=== PATIENT | female | born 1965 | race Caucasian/White ===

== ENCOUNTER → 2018-02-15 14:37 | Outpatient (CLI) | payer BC, SELFPAY ==
--- NOTE | 2018-02-15 14:45 | XR_ITS ---
XR ankle RT min 3V HISTORY: Pain ITS.REASON: RT FOOT PAIN ORDERING PHYSICIAN: Emiliano La MD PATIENT AGE: 52 years Comparison: None FINDINGS: Well-circumscribed calcific density is present in the medial aspect of the medial malleolus consistent with an old fracture or accessory center of ossification. Similar density is noted the posterior distal tibia. IMPRESSION, 1. No acute fracture. 2. Old fracture versus accessory center of ossification of the posterior distal and medial tibia
--- NOTE | 2018-02-15 14:45 | XR_ITS ---
XR foot RT min 3V HISTORY: ITS.REASON: RT FOOT PAIN ORDERING PHYSICIAN: Emiliano La MD PATIENT AGE: 52 years COMPARISON: None FINDINGS: There are prominent bony hypertrophic changes along the proximal aspect of the fifth metatarsal and at the dorsal aspect of the navicular. Small calcaneal spur present and there is an os cuboid area. The joint spaces are well-preserved. IMPRESSION: Bony hypertrophic changes as described above, no acute finding
== END ==
PROVIDERS: PCP Family Medicine; Visit Provider Family Medicine
DX: M79.671 Pain in right foot (principal)
CPT/HCPCS: 73610; 73630

== ENCOUNTER → 2019-11-20 09:07 | Outpatient (POV) | payer BC, SELFPAY | PROVIDERS: Visit Provider Dermatology | DX: Z00.00 Encounter for general adult medical examination without abnormal findings (principal) ==

== ENCOUNTER → 2020-01-26 10:42 | Outpatient (CLI) | payer BC, SELFPAY ==
--- NOTE | 2020-01-26 | MR_ITS ---
PROCEDURE: MR CERVICAL SPINE WO CON CLINICAL INDICATION: Neck tightness, left-sided shoulder pain, pinched nerve COMPARISON: No exams were available for comparison TECHNIQUE: Standard multiplanar multiecho sequences are performed without contrast. 3-D MIP and myelographic images are also rendered and reviewed FINDINGS: Study is technically limited due to patient's body habitus. There is mild hypertrophy of the odontoid posteriorly versus prominent transverse ligament with resultant narrowing of the canal at this level. The canal measures 9 mm. This abuts the cord anteriorly but without cord displacement or flattening. C2-C3: Unremarkable. C3-C4: Unremarkable. C4-C5: Minimal left paracentral disc protrusion with canal stenosis at 8 mm with minimal flattening of the cord on the left at this region. There is some hypertrophy of the posterior longitudinal ligament at the C5 level superiorly C5-C6: There is a small to medium sized right paracentral disc herniation. With severe right lateral recess narrowing and with compression upon the anterior right aspect of the cord. There is severe canal stenosis at this level at 6 mm. There is also left a small paracentral and foraminal disc protrusion of the disc at this level with severe left lateral recess narrowing and foraminal narrowing. There is cord compression greater on the right compared to the left. C6-C7: Degenerative disc disease. There is a bilobular disc protrusion in the right paracentral and left paracentral region causing severe canal stenosis of 6 mm with moderate to severe bilateral lateral recess narrowing and with cord compression by the disc. C7-T1: Mild degenerative disc disease with bulging disc eccentric toward the left. IMPRESSION: 1. There is mild hypertrophy of the odontoid posteriorly versus prominent transverse ligament with resultant narrowing of the canal at this level. The canal measures 9 mm. This abuts the cord anteriorly but without cord displacement or flattening 2. C4-C5: Minimal left paracentral disc protrusion with canal stenosis at 8 mm with minimal flattening of the cord on the left at this region. There is some hypertrophy of the posterior longitudinal ligament at the C5 level superiorly 3. C5-C6: There is a small to medium sized right paracentral disc herniation. With severe right lateral recess narrowing and with compression upon the anterior right aspect of the cord. There is severe canal stenosis at this level at 6 mm. There is also left a small paracentral and foraminal disc protrusion of the disc at this level with severe left lateral recess narrowing and foraminal narrowing. There is cord compression greater on the right compared to the left. 4. C6-C7: Degenerative disc disease. There is a bilobular disc protrusion in the right paracentral and left paracentral region causing severe canal stenosis of 6 mm with moderate to severe bilateral lateral recess narrowing and with cord compression by the disc. 5. C7-T1: Mild degenerative disc disease with bulging disc eccentric toward the left. Dictated by: Chong Brunson MD 01/28/2020 06:27 Chong Brunson MD in OV 01/28/2020 06:27
== END ==
PROVIDERS: PCP Family Medicine; Visit Provider Nurse Practitioner
DX: M54.12 Radiculopathy, cervical region (principal)
CPT/HCPCS: 72141; 76376

== ENCOUNTER 2020-02-13 08:43 | Outpatient (RCR) | payer BC, SELFPAY ==
--- NOTE | 2020-02-13 10:37 | HMH.PTOPEV ---
PT Outpatient Evaluation Rehab PT Outpatient Evaluation Start: 02/13/20 10:18 Freq: Status: Active Protocol: Document 02/13/20 10:21 ROSELIA (Rec: 02/13/20 10:37 PHORNE [id number]) Electronically Signed By Pastor Betts, PT 02/13/20 10:21 Outpatient Therapy Subjective History Subjective History Pt is 54 yowf who presents with c/o pain in R side of neck and R shld x ~ 6 mos which she reports results from a fall. She reports 2 falls in past 6 mos, one at a restaurant The chair wasn't put together right and it just fell apart under me and I fell back and the other at home on her front steps. She reports pain is constant ache, but intermittent shooting pains also occur. She reports intermittent headache and newer onset R hand weakness. She reports PMH of HTN and RA. She had MRI performed which show DDD with disc bulges at C4-5, C5-6, and C6-7. Pt has difficulty with cervical ROM at baseline due to soft tissue approximation. Chief Complaint Pain,Stiff,Decreased Printed Circuit Boards Beveler Strength Symptom Type Ache,Sharp Symptoms Aggravated By Physical Activity Prior Functional Limitations None Current Functional Limitations Lifting,Sleeping,Recreation Activity Symptom Description Constant but Variable Level of pain today (0-10) 5 Pain scale - at its worst (0-10) 10 Cervical Eval Palpation Cervical Muscles R Cervical Paraspinal,R Suboccipital,L Suboccipital,R Upper Trapezius Cervical/Thoracic Palpation Findings Tenderness Flexibility Deficits Upper Trapezius Muscle Length (L) Mild Tightness,(R) Moderate Tightness Levaetor Scapulae Muscle Length (L) Mild Tightness,(R) Moderate Tightness Passive Joint Mobility Cervical PIVM Dec: R C2/3 L C2/3 R C3/4 L C3/4 R C4/5 L C4/5 R C5/6
== END 2020-02-13 08:45 | disposition home or self-care (01) ==
LOC: PT 08:43
PROVIDERS: PCP Family Medicine; Visit Provider Nurse Practitioner
DX: M50.30 Other cervical disc degeneration, unspecified cervical region (principal); M79.2 Neuralgia and neuritis, unspecified
CPT/HCPCS: 97163

== ENCOUNTER → 2020-03-14 12:59 | Outpatient (CLI) | payer BC, SELFPAY | PROVIDERS: PCP Family Medicine; Visit Provider Neurological Surgery | DX: Z01.812 Encounter for preprocedural laboratory examination (principal); Z20.822 Contact with and (suspected) exposure to COVID-19 | CPT/HCPCS: U0003 ==

== ENCOUNTER → 2020-09-19 13:00 | Outpatient (CLI) | payer BC, SELFPAY | PROVIDERS: PCP Family Medicine; Visit Provider Family Medicine | DX: Z20.822 Contact with and (suspected) exposure to COVID-19 (principal) | CPT/HCPCS: U0003 ==

== ENCOUNTER → 2020-09-29 12:38 | Outpatient (CLI) | payer BC, SELFPAY | PROVIDERS: PCP Nurse Practitioner; Visit Provider Nurse Practitioner | DX: Z20.822 Contact with and (suspected) exposure to COVID-19 (principal) | CPT/HCPCS: U0003 ==

== ENCOUNTER 2021-11-23 07:53 | Outpatient (RCR) | payer BC, SELFPAY ==
--- NOTE | 2021-11-23 08:53 | HMH.PTOPEV ---
PT Outpatient Evaluation Rehab PT Outpatient Evaluation Start: 11/23/21 08:01 Freq: Status: Active Protocol: Document 11/23/21 08:01 KRISTIASHLEY (Rec: 11/23/21 08:52 RANI [id number]) E-signed By Lisa Cervantes, PT Outpatient Therapy Subjective History Subjective History Pt is a 56 y/o female that reports onset of bilateral low back pain a week and a half ago. Pt reports on Oct 11 she unloaded her car from an event with onset of upper back pain. Pt states pain improved until a week and a half ago when she moved heavy stuff around that caused gradual onset of bilateral low back pain. Pt reports constant pressure pain that travels from side/side and to the center that is worse with sitting. Pt reports she was given prednisone, cyclobenzaprine, and diclofenac sodium which hasn't helped much. Pt reports she has also been using a TENS unit with heat twice a day which relieves some pain. Pt reports she has a xray scheduled for after her PT appointment today. Pt reports she went back to work which involved mostly sitting that aggravated pain and improved some with walking . Pt denies paresthesia or recent falls. Pt reports she is able to sleep well when she takes her medicine but prior to medicine she would wake up around 4 am due to pain. Pt denies red flags (n/v, fever, night sweats, etc.) and hip, knee or ankle pain. 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
== END 2021-11-23 07:55 | disposition home or self-care (01) ==
LOC: PT 07:53
PROVIDERS: PCP Nurse Practitioner; Visit Provider Nurse Practitioner
DX: M54.50 Low back pain, unspecified (principal)
CPT/HCPCS: 97163

== ENCOUNTER → 2021-11-23 08:51 | Outpatient (CLI) | payer BC, SELFPAY ==
--- NOTE | 2021-11-23 09:03 | XR_ITS ---
FINAL REPORT CLINICAL HISTORY: acute bilateral low back pain FINDINGS: LUMBAR SPINE Three views were obtained. There is no acute fracture. There is no malalignment. There are mild and moderate degenerative changes with facet arthropathy in the lower lumbar spine. There is no soft tissue abnormality. IMPRESSION: Degenerative change with no acute bony abnormality. Reviewed, Interpreted and Dictated by Mahad Bragg III, MD Transcribed by Tatum Patel Authenticated and [facility]
== END ==
PROVIDERS: PCP Family Medicine; Visit Provider Nurse Practitioner
DX: M54.50 Low back pain, unspecified (principal)
CPT/HCPCS: 72100

== ENCOUNTER → 2022-02-15 09:21 | Outpatient (CLI) | payer BC, SELFPAY ==
[2022-02-15 18:31] LABS: Influenza A, PCR Not Detected (NotDetected); Influenza B, PCR Not Detected (NotDetected)
[2022-02-15 22:21] LABS: Coronavirus 19, PCR Detected (NotDetected)
== END ==
PROVIDERS: PCP Nurse Practitioner; Visit Provider Nurse Practitioner
DX: U07.1 COVID-19 (principal)
CPT/HCPCS: C9803; U0003; U0005

== ENCOUNTER → 2022-08-19 19:34 | Outpatient (CLI) | payer BC, SELFPAY ==
[2022-08-19 20:34] LABS: Basophils % 0.5 % (0.1-2.0); Eosinophils # 0.2 K/mm3 (0.0-0.4); Eosinophils % 2.9 % (0.1-12.0); Hematocrit 44.2 % (37.0-47.0); Hemoglobin 14.1 g/dL (12.2-16.2); Lymphocytes # 2.7 K/mm3 (0.7-4.5); Lymphocytes % 33.8 % (10-50); Mean Corpuscular HGB Conc 31.9 g/dL (31.8-35.4); Mean Corpuscular Hemoglobin 29.7 pg (27.0-31.2); Mean Corpuscular Volume 93.1 fl (81-99); Mean Platelet Volume 8.9 fl (7.4-10.4); Monocytes # 0.7 K/mm3 (0.1-1.0); Monocytes % 8.5 % (1.7-9.3); Neutrophils # 4.4 K/mm3 (1.8-7.8); Neutrophils % 54.2 % (37.0-80.0); Platelet Count 276 K/mm3 (142-424); Red Blood Count 4.74 M/mm3 (4.20-5.40); Red Cell Distribution Width 13.4 % (11.5-17.5)
[2022-08-19 20:42] LABS: Alanine Aminotransferase 66 U/L (12-78); Albumin Level 4.4 g/dl (3.5-5.0); Albumin/Globulin Ratio 1.4 (1.1-1.8); Alkaline Phosphatase 136 U/L (38-126); Anion Gap 13.3 mEq/L (5-15); Aspartate Amino Transferase 65 U/L (14-36); Bilirubin,Total 0.5 mg/dl (0.2-1.3); Blood Urea Nitrogen 10 mg/dl (7-17); Calcium 9.1 mg/dl (8.4-10.2); Carbon Dioxide 26 mmol/L (22.0-30.0); Chloride 105 mmol/L (98-107); Chol/HDL Ratio 2.8 (1-3.5); Cholesterol 207 mg/dl (140-200); Estimated Glomerular Filt Rate 128 ml/min (>60); GFR (African American) 155 ML/MIN (>60); Globulin 3.2 g/dL (1.3-3.2); Glucose 104 mg/dl (74-100); HDL Cholesterol 73 mg/dl (40-60); Potassium 4.3 mmoL/L (3.5-5.1); Sodium 140 mmol/L (136-145); Total Protein,Serum 7.6 g/dl (6.3-8.2); Triglycerides 144 mg/dl (30-150); VLDL Cholesterol 29 mg/dL (0-40)
[2022-08-19 20:46] LABS: Creatinine,Urine Random 159 mg/dL (Not Estab.); Hemoglobin A1C 6.1 % (4.0-6.0)
[2022-08-19 20:50] LABS: Microalbumin/Creatinine Ratio 4.4
[2022-08-19 20:53] LABS: Direct LDL Cholesterol 103.65 mg/dL (100-129)
[2022-08-19 21:13] LABS: Thyroid Stimulating Hormone 1.15 uIU/mL (0.465-4.68)
[2022-08-21 10:12] LABS: Lyme Ab CIA Negative (Negative)
== END ==
PROVIDERS: Nurse Practitioner; PCP Family Medicine; Visit Provider Family Medicine
DX: I10 Essential (primary) hypertension (principal); E78.5 Hyperlipidemia, unspecified; R73.01 Impaired fasting glucose; L08.9 Local infection of the skin and subcutaneous tissue, unspecified; S70.362A Insect bite (nonvenomous), left thigh, initial encounter; W57.XXXA Bitten or stung by nonvenomous insect and other nonvenomous arthropods, initial encounter
CPT/HCPCS: 80053; 80061; 82043; 82570; 83036; 84443; 85025; 86618

== ENCOUNTER → 2022-12-14 08:41 | Outpatient (CLI) | payer BC, SELFPAY ==
[2022-12-14 17:42] LABS: Coronavirus 19, PCR Not Detected (NotDetected); Influenza A, PCR Not Detected (NotDetected); Influenza B, PCR Not Detected (NotDetected)
== END ==
PROVIDERS: PCP Nurse Practitioner; Visit Provider Nurse Practitioner
DX: J06.9 Acute upper respiratory infection, unspecified (principal); R05.8 Other specified cough; R09.81 Nasal congestion; J02.9 Acute pharyngitis, unspecified
CPT/HCPCS: 87636

== ENCOUNTER 2023-03-22 22:04 | Outpatient (CLI) | payer BC, SELFPAY ==
[2023-03-22 18:21] LABS: Adenovirus,PCR Not Detected (NotDetected); Coronavirus 19, PCR Not Detected (NotDetected); Coronavirus 229E Not Detected (NotDetected); Coronavirus NL63 Not Detected (NotDetected); Coronavirus OC43 Not Detected (NotDetected); Coronovirus HKU1,PCR Not Detected (NotDetected); Human Metapneumovirus Not Detected (NotDetected); Influenza A, PCR Not Detected (NotDetected); Influenza AH1, 2009 Not Detected (NotDetected); Influenza AH1, PCR Not Detected (NotDetected); Influenza AH3,PCR Not Detected (NotDetected); Influenza B, PCR Not Detected (NotDetected); Parainfluenza 1, PCR Not Detected (NotDetected); Parainfluenza 2, PCR Not Detected (NotDetected); Parainfluenza 4, PCR Not Detected (NotDetected); Respiratory Syncytial Virus Not Detected (NotDetected); Rhinovirus/Enterovirus Not Detected (NotDetected)
[2023-03-22 21:46] LABS: Parainfluenza 3, PCR Detected (NotDetected)
== END 2023-03-22 23:59 ==
LOC: LAB.DROPOF 22:05
PROVIDERS: PCP Nurse Practitioner; Visit Provider Nurse Practitioner
DX: J06.9 Acute upper respiratory infection, unspecified (principal); R09.89 Other specified symptoms and signs involving the circulatory and respiratory systems; B34.8 Other viral infections of unspecified site
CPT/HCPCS: 87632; 87635

== ENCOUNTER 2023-05-10 19:10 | Outpatient (CLI) | payer BC, SELFPAY ==
[2023-05-10 18:32] LABS: Adenovirus,PCR Not Detected (NotDetected); Coronavirus 19, PCR Not Detected (NotDetected); Coronavirus 229E Not Detected (NotDetected); Coronavirus NL63 Not Detected (NotDetected); Coronavirus OC43 Not Detected (NotDetected); Coronovirus HKU1,PCR Not Detected (NotDetected); Human Metapneumovirus Not Detected (NotDetected); Influenza A, PCR Not Detected (NotDetected); Influenza AH1, 2009 Not Detected (NotDetected); Influenza AH1, PCR Not Detected (NotDetected); Influenza AH3,PCR Not Detected (NotDetected); Influenza B, PCR Not Detected (NotDetected); Parainfluenza 1, PCR Not Detected (NotDetected); Parainfluenza 2, PCR Not Detected (NotDetected); Parainfluenza 3, PCR Not Detected (NotDetected); Parainfluenza 4, PCR Not Detected (NotDetected); Respiratory Syncytial Virus Not Detected (NotDetected); Rhinovirus/Enterovirus Not Detected (NotDetected)
== END 2023-05-10 23:59 ==
LOC: LAB.DROPOF 19:11
PROVIDERS: PCP Nurse Practitioner; Visit Provider Nurse Practitioner
DX: J06.9 Acute upper respiratory infection, unspecified (principal); R09.81 Nasal congestion; R05.9 Cough, unspecified
CPT/HCPCS: 87632; 87635

== ENCOUNTER 2023-06-21 09:03 | Outpatient (POV) | payer BC, SELFPAY | END 2023-06-21 23:59 | disposition home or self-care (01) | LOC: SC 09:03 | PROVIDERS: PCP Nurse Practitioner; Visit Provider Dermatology | DX: Z00.00 Encounter for general adult medical examination without abnormal findings (principal) ==

== ENCOUNTER 2023-08-01 18:00 | Outpatient (CLI) | payer BC, SELFPAY ==
[2023-08-01 18:55] LABS: Adenovirus,PCR Not Detected (NotDetected); Bordetella Pertussis Not Detected (NotDetected); Chlamydophila Pneumoniae, PCR Not Detected (NotDetected); Coronavirus 19, PCR Not Detected (NotDetected); Coronavirus 229E Not Detected (NotDetected); Coronavirus NL63 Not Detected (NotDetected); Coronavirus OC43 Not Detected (NotDetected); Coronovirus HKU1,PCR Not Detected (NotDetected); Human Metapneumovirus Not Detected (NotDetected); Influenza A, PCR Not Detected (NotDetected); Influenza AH1, 2009 Not Detected (NotDetected); Influenza AH1, PCR Not Detected (NotDetected); Influenza AH3,PCR Not Detected (NotDetected); Influenza B, PCR Not Detected (NotDetected); Mycoplasma Pneumoniae, PCR Not Detected (NotDetected); Parainfluenza 1, PCR Not Detected (NotDetected); Parainfluenza 2, PCR Not Detected (NotDetected); Parainfluenza 3, PCR Not Detected (NotDetected); Parainfluenza 4, PCR Not Detected (NotDetected); Respiratory Syncytial Virus Not Detected (NotDetected); Rhinovirus/Enterovirus Not Detected (NotDetected)
== END 2023-08-01 23:59 | disposition home or self-care (01) ==
LOC: LAB.DROPOF 08-02 08:54
PROVIDERS: PCP Nurse Practitioner; Visit Provider Nurse Practitioner
DX: J06.9 Acute upper respiratory infection, unspecified (principal)
CPT/HCPCS: 87581; 87632; 87635; 87798

== ENCOUNTER 2023-08-17 07:54 | Outpatient (CLI) | payer BC, SELFPAY ==
--- NOTE | 2023-08-17 07:55 | CT_ITS ---
FINAL REPORT TECHNIQUE: Thin section axial CT images of the facial bones and sinuses were obtained without contrast. Coronal reformatted images were also obtained.This study was performed with techniques to keep radiation doses as low as reasonably achievable, (ALARA). Individualized dose reduction techniques using automated exposure control or adjustment of mA and/or kV according to the patient''''s size were employed. CLINICAL HISTORY: Sinus issues FINDINGS: There is mild mucosal thickening in the left posterior ethmoid air cells and the left sphenoid sinus. There is fluid in the inferior mastoid air cells bilaterally. The ostiomeatal units have an unremarkable appearance. The nasal septum is in the midline. No fracture or acute bony abnormality is identified. IMPRESSION: Mucosal thickening in the left posterior ethmoid air cells and the left sphenoid sinus. Bilateral mastoiditis. Reviewed, Interpreted and Dictated by Mahad Bragg III, MD Transcribed by Stephanie Flaherty Authenticated and [facility]
== END 2023-08-17 23:59 | disposition home or self-care (01) ==
LOC: RAD 07:55
PROVIDERS: PCP Family Medicine; Visit Provider Nurse Practitioner
DX: H93.8X2 Other specified disorders of left ear (principal)
CPT/HCPCS: 70486

== ENCOUNTER 2023-08-24 10:13 | Outpatient (POV) | payer BC, SELFPAY | END 2023-08-24 23:59 | disposition home or self-care (01) | LOC: SC 10:13 | PROVIDERS: Visit Provider Specialist/Technologist | DX: Z00.00 Encounter for general adult medical examination without abnormal findings (principal) ==

== ENCOUNTER 2024-01-31 14:00 | Outpatient (RCR) | payer BC, SELFPAY | END 2024-01-31 23:59 | disposition home or self-care (01) | LOC: OT 14:00 | PROVIDERS: PCP Nurse Practitioner; Visit Provider Internal Medicine Rheumatology | DX: M65.842 Other synovitis and tenosynovitis, left hand (principal) | CPT/HCPCS: 97014; 97035; 97110; 97140; 97166; 97530; G0283 ==

== ENCOUNTER 2024-02-16 11:36 | Outpatient (CLI) | payer BC, SELFPAY ==
[2024-02-16 18:31] LABS: Chloride 103 mmol/L (98-107); Sodium 138 mmol/L (136-145)
[2024-02-16 18:32] LABS: Potassium 4.4 mmoL/L (3.5-5.1)
[2024-02-16 18:34] LABS: Albumin/Globulin Ratio 1.4 (1.1-1.8); Alkaline Phosphatase 142 U/L (38-126); Anion Gap 11.4 mEq/L (5-15); Bilirubin,Total 0.4 mg/dl (0.2-1.3); Blood Urea Nitrogen 7 mg/dl (7-17); Carbon Dioxide 28 mmol/L (22.0-30.0); Estimated Glomerular Filt Rate 103 ml/min (>60); GFR (African American) 125 ML/MIN (>60); Globulin 2.9 g/dL (1.3-3.2); Total Protein,Serum 6.9 g/dl (6.3-8.2)
[2024-02-16 18:35] LABS: Alanine Aminotransferase 54 U/L (12-78); Aspartate Amino Transferase 50 U/L (14-36); Calcium 9.3 mg/dl (8.4-10.2); Glucose 106 mg/dl (74-100)
[2024-02-16 18:36] LABS: Hemoglobin A1C 6.1 % (4.0-6.0)
[2024-02-16 19:04] LABS: Thyroid Stimulating Hormone 1.48 uIU/mL (0.465-4.68)
== END 2024-02-16 23:59 | disposition home or self-care (01) ==
LOC: LAB.DROPOF 02-17 10:28
PROVIDERS: PCP Family Medicine; Visit Provider Family Medicine
DX: E78.5 Hyperlipidemia, unspecified (principal); Z68.42 Body mass index [BMI] 45.0-49.9, adult; E66.01 Morbid (severe) obesity due to excess calories
CPT/HCPCS: 80053; 83036; 84443

== ENCOUNTER 2024-04-10 19:14 | Outpatient (CLI) | payer BC, SELFPAY ==
[2024-04-10 17:54] LABS: Coronavirus 19, PCR Not Detected (NotDetected); Human Rhinovirus Not Detected (NotDetected); Influenza A, PCR Not Detected (NotDetected); Influenza B, PCR Not Detected (NotDetected); Respiratory Syncytial Virus Not Detected (NotDetected)
== END 2024-04-10 23:59 | disposition home or self-care (01) ==
LOC: LAB.DROPOF 19:14
PROVIDERS: PCP Nurse Practitioner; Visit Provider Nurse Practitioner
DX: J06.9 Acute upper respiratory infection, unspecified (principal)
CPT/HCPCS: 87631

== ENCOUNTER 2024-10-08 08:50 | Outpatient (CLI) | payer BC, SELFPAY ==
[2024-10-08 14:51] LABS: Hematocrit 44.7 % (37.0-47.0); Hemoglobin 14.7 g/dL (12.2-16.2); Immature Granulocytes % 0.5 %; Mean Corpuscular HGB Conc 32.9 g/dL (31.8-35.4); Mean Corpuscular Hemoglobin 30.6 pg (27.0-31.2); Mean Corpuscular Volume 92.9 fl (81-99); Nucleated Red Blood Cells % 0 %; Platelet Count 219 K/mm3 (142-424); Red Blood Count 4.81 M/mm3 (4.20-5.40); Red Cell Distribution Width-SD 44.1 fL; White Blood Count 7.5 K/mm3 (4.8-10.8)
[2024-10-08 15:56] LABS: Alanine Aminotransferase 56 U/L (12-78); Albumin Level 4.3 g/dl (3.5-5.0); Albumin/Globulin Ratio 1.4 (1.1-1.8); Alkaline Phosphatase 139 U/L (38-126); Anion Gap 13.6 mEq/L (5-15); Aspartate Amino Transferase 52 U/L (14-36); Bilirubin,Total 0.6 mg/dl (0.2-1.3); Blood Urea Nitrogen 7 mg/dl (7-17); Calcium 9.4 mg/dl (8.4-10.2); Carbon Dioxide 28 mmol/L (22.0-30.0); Chloride 101 mmol/L (98-107); Cholesterol 184 mg/dl (140-200); Creatinine,Serum 0.60 mg/dl (0.52-1.04); Estimated Glomerular Filt Rate 103 ml/min (>60); GFR (African American) 124 ML/MIN (>60); Globulin 3.0 g/dL (1.3-3.2); Glucose 135 mg/dl (74-100); HDL Cholesterol 72 mg/dl (40-60); Potassium 4.6 mmoL/L (3.5-5.1); Sodium 138 mmol/L (136-145); Total Protein,Serum 7.3 g/dl (6.3-8.2); Triglycerides 150 mg/dl (30-150)
[2024-10-08 16:28] LABS: Thyroid Stimulating Hormone 1.21 uIU/mL (0.465-4.68)
[2024-10-08 16:46] LABS: Vitamin B12 475 pg/mL (239-931)
[2024-10-08 18:04] LABS: Hepatitis C Ab Qual. W/ RFX NEGATIVE (Negative)
[2024-10-08 18:15] LABS: Hemoglobin A1C 6.3 % (4.0-6.0)
[2024-10-09 07:10] LABS: Hepatitis B Surface Antigen Negative (Negative)
--- OUTSIDE RECORDS SUMMARY | 2024-10-10 12:30 | XMS_ITS | Encounter Summary ---
Author Organization [employer] ([place], [place], [place], [place]) Address [address] [place] [address] Care Team Providers Care Oxygen Plant Operator Name Role Phone Unavailable Primary Care Provider Unavailabl e Encounter Details Date Type Department Care Team (Late st Contact Info) Description 03/19/2020 Transcribed Document [facility] Family Medicine [facility] [place] [address] ProviderDamion MD [address] [place] [address] Social History Tobacco Use Types Packs/Day Years Used Date Smoking Tobacco: Never Assessed Comments Unknown Sex and Gender Information Value Date Recorded Sex Assigned at Female 08/13/2021 6:30 PM CDT Legal Sex Female 1:15 PM CDT Gender Identity Female 08/13/2021 6:30 PM CDT Sexual Orientation Not on file documented as of this encounter Miscellaneous Notes * Cerner Conversion Note - Historical ProviderMD - 03/19/2020 1:30 PM LEGAL OPERATIONS MANAGER UM Authorization Entered On: 03/19/2020 13:30 EST Performed On: 03/19/2020 13:30 EST by Marta Escoto Rn-Utilization Review Primary Insurance Authorization Authorization and Policy Numbers : Insurance 1 Health Plan: LI [employer] Policy Number: [id number] Authorization Number: [id number] Insurance Primary Name : Li [id number] Authorization Status-Primary : Approved Authorization Number-Primary : OUT PT Auth# [id number] Authorized Service Begin Date-Primary : 03/18/2020 EST Historical Authorization Comments-Primary : Comment 1: [place] is [place] for Cervical Discectomy Fusion Anterior on Tuesday03-18-20 Angelica: OUT PT auth# [id number] (ELSA LOERA, Electron Beam Welder Setter 03/17/2020 14:55) Marta Escoto Rn-Utilization Review - 03/19/2020 13:30 EST Electronically signed by [facility] Conversion Supervisor [employer] at 06/04/2022 6:44 PM CDT documented in this encounter Plan of Treatment Not on file documented as of this encounter Visit Diagnoses Not on filedocumented in this encounter
--- OUTSIDE RECORDS SUMMARY | 2024-10-10 12:30 | XMS_ITS | Encounter Summary ---
Author Organization [employer] ([place], [place], [place], [place]) Address [address] [place] [address] Care Team Providers Care Slurry Tank Tender Name Role Phone Unavailable Primary Care Provider Unavailabl e Encounter Details Date Type Department Care Team (Late st Contact Info) Description 03/17/2020 Transcribed Document [facility] Family Medicine [facility] [place] [address] ProviderDamion MD [facility] [place] [address] Social History Tobacco Use Types [...] Cerner Conversion Note - Historical ProviderMD - 03/17/2020 3:00 PM PSYCHIATRIC TECHNICIAN PAT Adult Entered On: 03/17/2020 15:16 EST Performed On: 03/17/2020 15:00 EST by BRADLY WONG RN Height and Weight, Clinical Dosing Height Source : Measured Height Entry Format : Floyd Height, Feet : 5 ft(Converted to: 152 cm, 60 Inch) Height, Inches : 4 Inch(Converted to: 0 ft 4 Inch, 10.16 cm) Clinical Height : 162.56 cm Weight Source : Standing scale Weight Entry Format : Floyd Clinical Dosing Weight : 125 kg Weight, Pounds : 275 lb Body Surface Area (BSA) : 2.24 m2 Body Mass Index : 47.3 kg/m2 (>HHI) [place] Body Weight : 54 kg ALLA JOHNSON RN - 03/18/2020 10:30 EST Health Histories Smoking Status : Never (less than 100 in lifetime; none in last 30 days) Smokeless Tobacco Status : Never Implant/Device Type, Laboratory Geneticist and Model : none BRADLY WONG RN - 03/17/2020 15:00 EST Social History (As Of: 03/17/2020 15:16:30 EST) Infectious Disease History Has the patient ever been tested for COVID-19? : Yes, Patient stated results pending Where was the COVID-19 Testing completed? : [facility] Date of COVID-19 test known? : Yes Date of COVID-19 Test : 03/14/2020 EST Does patient have symptoms of COVID-19? : No COVID19 Screening : No Experiencing Infectious Disease Symptoms : No symptoms Physical contact outside [place] in the last 30 days : No Infectious Disease History : Chicken pox/Shingles, Influenza Tuberculosis Symptoms : None BRADLY WONG RN - 03/17/2020 15:00 EST COVID19 PreProcedure Screening Is this an Emergent or Add on Procedure? : No Date PreProcedure COVID-19 test known? : Yes Date of PreProcedure COVID-19 : 03/14/2020 EST Has patient been isolated since the test : No Exposed to COVID19 symptoms since test? : No BRADLY WONG RN - 03/17/2020 15:00 EST Anesthesia/Transfusion History Family History of Anesthesia Reaction : Prior transfusion without reaction Transfusion History : Prior anesthesia reaction Type of Anesthesia Reaction : Excessive nausea/vomiting Family History of Anesthesia Reaction : None BRADLY WONG RN - 03/17/2020 15:00 EST Functional Assessment Functional ADL Evaluation Index EBN Bathing : Independent (2) Dressing : Independent (2) Toileting : Independent (2) Transferring Bed or Chair : Independent (2) Continence : Independent (2) Feeding : Independent (2) BRADLY WONG RN - 03/17/2020 15:00 EST ADL Index Score : 12 BRADLY WONG RN - 03/17/2020 15:00 EST Advance Directive Copy Advance Directive Verified/on Chart : No ALLA JOHNSON RN - 03/18/2020 10:30 EST Patient has Advance Directive *Q : Yes, Advance Directive not with the patient Advance Directive Type : Living will BRADLY WONG RN - 03/17/2020 15:00 EST [place] Suicide Severity Rating Scale (C-SSRS) CSSRS Past Month Wish to be : No CSSRS Past Month Suicidal Thoughts : No CSSRS Lifetime Suicide Behavior : No Suicide Severity Rating Score : 0 Suicide Severity Rating : No Additional Care Required at this time BRADLY WONG RN - 03/17/2020 15:00 EST Psychosocial History Do You Have a History of the Following? : Anxiety, Depression Currently in Unsafe Situation : No BRADLY WONG RN - 03/17/2020 15:00 EST Education Topics, Periop Preadmission Perioperative Education Grid Arrival Time/Place : Verbalizes understanding NPO Status/Directions : Verbalizes understanding Remove Body Piercings : Verbalizes understanding Take/Hold Medications Pre-Procedure : Verbalizes understanding BRADLY WONG RN - 03/17/2020 15:00 EST General Info Legal Guardian : Unaccompanied BRADLY WONG RN - 03/17/2020 15:32 EST Preferred Name : Bushra Support Person/Pt Rep Contact Information : Yandel Romero, Want Family/Rep/Phys Notified of Admit : No Emergency Contact #1 : Yandel Romero Emergency Contact #1 Emergency Contact #1 Relationship : Emergency Contact #2 : none Emergency Contact #2 Phone Number : none Emergency Contact #2 Relationship : none BRADLY WONG RN - 03/17/2020 15:00 EST Chief Complaint : neck pain radiating to right shoulder, RUE BRADLY WONG RN - 03/17/2020 15:32 EST Primary Language : Swedish Communication Barrier : None Psychiatric Clinician Needed : No BRADLY WONG RN - 03/17/2020 15:00 EST Vishal Scale Vishal Sensory Perception : No impairment Vishal Moisture : Rarely moist Vishal Activity : Walks frequently Vishal Mobility : No limitation Vishal Nutrition : Excellent Vishal Friction and Shear : No apparent problem Vishal Score : 23 BRADLY WONG RN - 03/17/2020 15:00 EST Sleep Apnea Risk Assmt BiPAP/CPAP Ordered for Home Use : Yes Hx of Obstructive Sleep Apnea Diagnosis : Yes BiPAP/CPAP Used at Home : Yes Age over 50 Years Old : Yes Gender Male : No BRADLY WONG RN - 03/17/2020 15:00 EST documented in this encounter Plan of Treatment Not on file documented as of this encounter Visit Diagnoses Not on filedocumented in this encounter
--- OUTSIDE RECORDS SUMMARY | 2024-10-10 12:30 | XMS_ITS | Encounter Summary ---
Author Organization [employer] ([place], [place], [place], [place]) Address [address] [place] [address] Care Team Providers Care Baggage Inspector Name Role Phone Unavailable Primary Care Provider Unavailabl e Encounter Details Date Type Department Care Team (Late st Contact Info) Description 03/19/2020 Transcribed Document [facility] [place] Family Medicine [facility] [place] [address] ProviderDamion MD [address] [id number] Social History Tobacco Use Types Packs/Day Years [...] Conversion Note - Historical ProviderMD - 03/19/2020 10:15 AM LIFESTYLE DIRECTOR Stroke/Warfarin Instructions Entered On: 03/19/2020 10:15 EST Performed On: 03/19/2020 10:15 EST by DANIA GALLO RN Stroke/Warfarin Instructions Stroke/TIA Discharge Ins : N/A Warfarin Discharge Ins : N/A DANIA GALLO RN - 03/19/2020 10:15 EST Electronically signed by Patricia Ennis Conversion Creative Writing English Professor Cerner at 06/04/2022 6:43 PM CDT documented in this encounter Plan of Treatment Not on file documented as of this encounter Visit Diagnoses Not on filedocumented in this encounter
--- OUTSIDE RECORDS SUMMARY | 2024-10-10 12:30 | XMS_ITS | Encounter Summary ---
Author Organization [employer] ([place], [place], [place], [place]) Address [address] [place] [address] Care Team Providers Care Document Control Specialist Name Role Phone Unavailable Primary Care Provider Unavailabl e Encounter Details Date Type Department Care Team (Late st Contact Info) Description 03/17/2020 Transcribed Document [facility] [place] Family Medicine [facility] [place] [address] ProviderDamion MD [address] [place] [address] Social History Tobacco Use Types [...] Conversion Note - Historical ProviderMD - 03/17/2020 2:55 PM WORKERS COMPENSATION CONSULTANT UM Authorization Entered On: 03/17/2020 14:56 EST Performed On: 03/17/2020 14:55 EST by ELSA LOERA, Custom Furrier Primary Insurance Authorization Authorization and Policy Numbers : Insurance 1 Health Plan: [employer] Policy Number: [id number] Authorization Number: Insurance Primary Name : Li [id number] Authorization Status-Primary : Approved Authorization Number-Primary : OUT PT Auth# [id number] Authorized Service Begin Date-Primary : 03/18/2020 EST Authorization Comments-Primary : [place] is [place] for Cervical Discectomy Fusion Anterior on Tuesday03-18-20 [place]: OUT PT auth# [id number] Historical Authorization Comments-Primary : No Authorization Comments Found ELSA LOERA, Custom Furrier - 03/17/2020 14:55 EST Electronically signed by [facility] Conversion Grading Machine Operator Cerner at 06/04/2022 6:27 PM CDT documented in this encounter Plan of Treatment Not on file documented as of this encounter Visit Diagnoses Not on filedocumented in this encounter
--- OUTSIDE RECORDS SUMMARY | 2024-10-10 12:30 | XMS_ITS | Encounter Summary ---
Author Organization [employer] ([place], [place], [place], [place]) Address [address] [place] [address] Care Team Providers Care Inspector Line Name Role Phone Unavailable Primary Care Provider Unavailabl e Encounter Details Date Type Department Care Team (Late st Contact Info) Description 03/19/2020 Transcribed Document [facility] Family Medicine [facility] [place] [address] ProviderDamion MD [facility] [place] [address] Social History Tobacco Use Types Packs/Day Years Used Date Smoking Tobacco: Never Assessed Comments Unknown Sex and Gender Information Value Date Recorded Sex Assigned at Female 08/13/2021 6:30 PM CDT Legal Sex Female 1:15 PM CDT Gender Identity Female 08/13/2021 6:30 PM CDT Sexual Orientation Not on file documented as of this encounter Miscellaneous Notes * Cerner Conversion Note - Damion Veronica MD - 03/19/2020 11:14 AM 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 [facility] [place] [address] BUSHRA NORWOOD :1965 Visit Time:03/18/2020 Your Visit Summary Your Care Team Admitting Physician - VALE CARRILLO MD Attending Physician - VALE CARRILLO MD Primary Care Physician - JUDY GALLARDO (REF), AMANDA Referring Physician - JUDY GALLARDO (REF), AMANDA Your Diagnosis Cervical spondylosis with radiculopathy Spinal stenosis in cervical region, Spinal stenosis, cervical region, Spinal stenosis, cervical region What to do next Instructions From Your Care Team complete instructions per neurosurgery discharge information sheet, included Diet after Discharge: Resume usual diet as tolerated,softer foods for a few days, small bites, chew thoroughly _, _ Activity after Discharge: _, _, No strenuous activity Lifting Restrictions: No heavy lifting over 10 pounds Driving after Discharge: Do not drive Showering/Bathing: May shower, No tub bathing, soaking or swimming Wound/Incision Care after Discharge: _,change dressing as needed _ Discharge Follow Up Instructions: f/u with AP/lateral cervical x-rays in 4-6 weeks. x-rays need to be done at [facility] prior to f/u appt. Activity: no lifting over 10 poundsInstruments activityKeep incision site dry and clean, Discharge Activity: No heavy lifting over 10 lbs Follow-Up Appointments Follow Up with VALE CARRILLO When 03/26/2020 02:45 PM EST Comments patient will f/u in one month with a set of ap/lateral cervical x-rays, see card Where: [address] [place] [address] Business ([address]) Medications What How Much When Instructions Next Dose acetaminophen-hydrocodone (Paradise 7.5 mg-325 mg oral tablet) 1 Tablet(s) Oral Every 6 Hours as needed for as needed for pain 4pm amitriptyline 20 Milligram(s) Oral At Bedtime tonight amlodipine-benazepril (amlodipine-benazepril 10 mg-40 mg oral capsule) 1 Capsule(s) Oral Every Day tonight atorvastatin 40 Milligram(s) Oral Every Day tonight busPIRone 15 Milligram(s) Oral Two Times A Day tonight carBAMazepine 100 Milligram(s) Oral Two Times A Day tonight diclofenac topical (Voltaren 1% topical gel) 2 Gram(s) Topical Four Times A Day as needed for as needed for arthritic pain uses to hands, feet and knees may resume in two months post-op as needed etanercept (Enbrel Prefilled Syringe) 50 Milligram(s) SubCutaneous Tuesday weekly today gabapentin 1,200 Milligram(s) Oral At Bedtime tonight hydroCHLOROthiazide 25 Milligram(s) Oral Every Day tomorrow lansoprazole (Prevacid) 30 Milligram(s) Oral Every Day tomorrow methylcellulose (Citrucel Lax) 1,000 Milligram(s) Oral Every Day today venlafaxine 225 Milligram(s) Oral At Bedtime tonight Take your medications faithfully. Do NOT skip medication. Do NOT stop taking medications without the direction of a physician. Carry a list of your medications with you at all times, and take this medication list with you to your first follow up visit. Report any side effects. Avoid herbal remedies unless discussed with your physician. As part of your treatment plan, your physician may have prescribed a limited course of a controlled substance. This medication may be given to help people with moderate or severe pain or for other medical conditions, but there are risks involved with treatment. Common side effects may include nausea, constipation, drowsiness, sweating, itching, dry mouth, and rash. More serious side effects may include cognitive and motor impairment, like problems with thinking, concentrating, alertness, and movement (e.g. slowed reflexes), and driving and operating heavy machinery can be dangerous. It is important for you to talk to your physician if you have these side effects or questions. These controlled substances can produce physical dependence and be habit-forming if taken for an extended period of time, which means that the body has gotten used to them and may experience withdrawal symptoms if they are abruptly stopped. Withdrawal symptoms can include runny nose, sweating, goose bumps, diarrhea, abdominal cramping, rapid heartbeat, difficulty sleeping, and nervousness. Please dispose of unused and medications per your retail pharmacy guidance. Allergies shellfish (Swelling of throat, Anaphylaxis) Immunizations This Visit No Immunizations Found Education Materials Cervical Fusion, Care After This sheet gives you information about how to care for yourself after your procedure. Your health care provider may also give you more specific instructions. If you have problems or questions, contact your health care provider. What can I expect after the procedure? After the procedure, it is common to have: ??? Incision area pain. ??? Numbness. ??? Weakness. ??? Sore throat. ??? Difficulty swallowing. Follow these instructions at home: Medicines ??? Take ikid-fgu-tgkauvu and prescription medicines, including pain medicines, only as told by your health care provider. ??? If you were prescribed an antibiotic medicine, take it as told by your health care provider. Do not stop taking the antibiotic even if you start to feel better. If you have a brace: ??? Wear the brace as told by your health care provider. Remove it only as told by your health care provider. ??? Keep the brace clean. Incision care ??? Follow instructions from your health care provider about how to take care of your incision. Make sure you: ? Wash your hands with soap and water before you change your bandage (dressing). If soap and water are not available, use hand supervisor evaporator. ? Change your dressing as told by your health care provider. ? Leave stitches (sutures), skin glue, or adhesive strips in place. These skin closures may need to be in place for 2 weeks or longer. If adhesive strip edges start to loosen and curl up, you may trim the loose edges. Do not remove adhesive strips completely unless your health care provider tells you to do that. ??? Keep your incision clean and dry. Do not take baths, swim, or use a hot tub until your health care provider approves. ??? Check your incision area every day for signs of infection. Check for: ? More redness, swelling, or pain. ? More fluid or blood. ? Warmth. ? Pus or a bad smell. Activity ??? Rest and protect your back as much as possible. ??? Do not lift anything that is heavier than 10 lb (4.5 kg) or the limit that you are told by your health care provider. ??? Do not twist or bend at the waist until your health care provider approves. ??? Avoid: ? Pushing and pulling motions. ? Lifting anything over your head. ? Sitting or lying down in the same position for long periods of time. ??? Do not exercise until your health care provider approves. Once your health care provider has approved exercise, ask him or her what kinds of exercises you can do to make your back stronger (physical therapy). ??? Do not drive until your health care provider approves. ? Do not drive for 24 hours if you received a medicine to help you relax (sedative). ? Do not drive or use heavy machinery while taking prescription pain medicine. General instructions ??? Have someone assist you to turn in bed frequently by moving your whole body without twisting your back (log rolling technique). ??? Wear compression stockings as told by your health care provider. These stockings help to prevent blood clots and reduce swelling in your legs. ??? Do not use any products that contain nicotine or tobacco, such as cigarettes and e-cigarettes. These can delay bone healing. If you need help quitting, ask your health care provider. ??? To prevent or treat constipation while you are taking prescription pain medicine, your health care provider may recommend that you: ? Drink enough fluid to keep your urine clear or pale yellow. ? Take iief-fap-itflams or prescription medicines. ? Eat foods that are high in fiber, such as fresh fruits and vegetables, whole grains, and beans. ? Limit foods that are high in fat and processed sugars, such as fried and sweet foods. ??? Keep all follow-up visits as told by your health care provider. This is important. Contact a health care provider if: ??? You have pain that gets worse or does not get better with medicine. ??? You have more redness, swelling, or pain around your incision. ??? You have more fluid or blood coming from your incision. ??? Your incision feels warm to the touch. ??? You have pus or a bad smell coming from your incision. ??? You have a fever. ??? You have weakness or numbness in your legs that is new or getting worse. ??? You have swelling in your calf or leg. ??? The edges of your incision break open. ??? You vomit or feel nauseous. ??? You have trouble controlling urination or bowel movements. Get help right away if: ??? You develop shortness of breath or chest pain. ??? You have trouble swallowing. ??? You have trouble breathing. ??? You develop a cough. This information is not intended to replace advice given to you by your health care provider. Make sure you discuss any questions you have with your health care provider. Document Released: 09/14/2004 Document Revised: 01/13/2018 Document Reviewed: 08/11/2016 Elsevier Patient Education ?? 2020 [employer] Cervical Fusion Cervical fusion is a procedure that is done on bones in the neck (cervical spine) to relieve pressure on the spinal cord or one or more nerve roots. There are two types of cervical fusion: ??? Posterior cervical fusion. This surgery is done through the back (posterior) of the neck. The goal of this procedure is to make two or more of the bones in the spinal column (vertebrae) grow together (fuse). This procedure is most commonly used to treat neck fractures and dislocations and to fix deformities in the curve of the neck. ??? Anterior cervical fusion. This surgery is done through the front (anterior) part of the neck. This procedure is most commonly used to treat herniated cervical disk, degenerative cervical disease, and arthritis in the cervical spine. During this type of surgery: ? The affected disk between the two vertebrae (intervertebral disk) is removed, as well as any extra bone on the edges of the vertebrae (bone spurs). This takes pressure off of the nerves or spinal cord (decompression). ? The area where the disk was removed is filled with a bone material (graft) or artificial bone material (implant) and then it fuses over time. In either procedure, hardware such as rods, screws, metal plates, or cages may be inserted to stabilize the vertebrae while they heal. Tell a health care provider about: ??? Any allergies you have. ??? All medicines you are taking, including vitamins, herbs, eye drops, creams, and dlce-pxf-sootkjb medicines. ??? Any problems you or family members have had with anesthetic medicines. ??? Any blood disorders you have. ??? Any surgeries you have had. ??? Any medical conditions you have. ??? Whether you are or may be . What are the risks? Generally, this is a safe procedure. However, problems may occur, including: ??? Infection. ??? Bleeding. ??? Allergic reactions to medicines or dyes. ??? Damage to other structures or organs, such as nerves near the spine. ??? Spinal fluid leakage. ??? Blood clots. ??? Trouble controlling urination or bowel movements. ??? Vertebrae not fusing together completely (pseudoarthrosis). ??? Temporary hoarseness of the voice. ??? Difficulty swallowing. What happens before the procedure? Staying hydrated Follow instructions from your health care provider about hydration, which may include: ??? Up to 2 hours before the procedure ??? you may continue to drink clear liquids, such as water, clear fruit juice, black coffee, and plain tea. Eating and drinking restrictions Follow instructions from your health care provider about eating and drinking, which may include: ??? 8 hours before the procedure ??? stop eating heavy meals or foods such as meat, fried foods, or fatty foods. ??? 6 hours before the procedure ??? stop eating light meals or foods, such as toast or cereal. ??? 6 hours before the procedure ??? stop drinking milk or drinks that contain milk. ??? 2 hours before the procedure ??? stop drinking clear liquids. Medicines ??? Ask your health care provider about: ? Changing or stopping your regular medicines. This is especially important if you are taking diabetes medicines or blood thinners. ? Taking medicines such as aspirin and ibuprofen. These medicines can thin your blood. Do not take these medicines before your procedure if your health care provider instructs you not to. ??? You may be given antibiotic medicine to help prevent infection. General instructions ??? Ask your health care provider how your surgical site will be marked or identified. ??? You will have blood and urine samples taken. ??? You may have tests, such as: ? X-rays. ? CT scan. ? MRI. ??? Plan to have someone take you home from the hospital or clinic. ??? If you will be going home right after the procedure, plan to have someone with you for 24 hours. What happens during the procedure? To reduce your risk of infection: ? Your health care team will wash or sanitize their hands. ? Your skin will be washed with soap. ? Hair may be removed from the surgical area. ??? An IV tube will be inserted into one of your veins. ??? You will be given one or more of the following: ? A medicine to help you relax (sedative). ? A medicine to make you fall asleep (general anesthetic). ??? If you are having a posterior cervical fusion: ? An incision will be made in the back of your neck. ? Two or more vertebrae will be joined into one solid section of bone with a bone graft. ??? If you are having an anterior cervical fusion: ? An incision will be made in the area where the fusion will be placed. This is usually done at the front of your neck. ? Your neck muscles will be pushed aside. ? The affected disk and bone spurs will be removed (decompression). ? The area where the disk was removed will then be filled with bone graft or bone implants or both. ??? Screws and rods or metal plates may be used to stabilize the vertebrae while they fuse. ??? Your incision may be closed. ??? A bandage (dressing) may be placed over your incision. The procedure may vary among health care providers and hospitals. What happens after the procedure? You will be given medicine to relieve pain as needed. ??? You will continue to receive fluids and medicines through an IV tube. ??? Your blood pressure, heart rate, breathing rate, and blood oxygen level will be monitored until the medicines you were given have worn off. ??? You may be given a brace to wear while you heal. ??? Do not drive until your health care provider approves. ??? You may have to wear compression stockings. These stockings help to prevent blood clots and reduce swelling in your legs. ??? You may be asked to do breathing exercises. This helps prevent a lung infection. ??? You will be encouraged to stand up and walk as soon as you are able. You will be taught how to move correctly and how to stand and walk. ??? You will be assisted to turn in bed frequently by moving your whole body without twisting your back (log rolling technique). This information is not intended to replace advice given to you by your health care provider. Make sure you discuss any questions you have with your health care provider. Document Released: 07/23/2002 Document Revised: 01/13/2018 Document Reviewed: 08/11/2016 [employer] Patient Education ?? 2020 [employer]. acetaminophen and hydrocodone (a SEET a MIN oh fen and magdaleno droe KOE done) Hycet, Lorcet, Paradise, Verdrocet, Vicodin, Xodol, Zamicet What is the most important information I should know about acetaminophen and hydrocodone? MISUSE OF OPIOID MEDICINE CAN CAUSE ADDICTION, OVERDOSE, OR . Keep the medication in a place where others cannot get to it. Taking opioid medicine during may cause life-threatening withdrawal symptoms in the . Fatal side effects can occur if you use opioid medicine with alcohol, or with other drugs that cause drowsiness or slow your breathing. Stop taking this medicine and call your doctor right away if you have skin redness or a rash that spreads and causes blistering and peeling. What is acetaminophen and hydrocodone? Acetaminophen and hydrocodone is a combination medicine used to relieve moderate to severe pain. Acetaminophen and hydrocodone contains an opioid medicine, and may be habit-forming. Acetaminophen and hydrocodone may also be used for purposes not listed in this medication guide. What should I discuss with my healthcare provider before taking acetaminophen and hydrocodone? You should not use this medicine if you are allergic to acetaminophen or hydrocodone, or if you have: ?? severe asthma or breathing problems; or ?? a blockage in your stomach or intestines. Tell your doctor if you have ever had: ?? breathing problems, sleep apnea; ?? liver disease; ?? a drug or alcohol addiction; ?? kidney disease; ?? a head injury or seizures; ?? urination problems; or ?? problems with your thyroid, pancreas, or gallbladder. If you use opioid medicine while you are , your baby could become dependent on the drug. This can cause life-threatening withdrawal symptoms in the baby after it is born. Babies born dependent on opioids may need medical treatment for several weeks. Ask a doctor before using opioid medicine if you are . Tell your doctor if you notice severe drowsiness or slow breathing in the nursing baby. How should I take acetaminophen and hydrocodone? Follow all directions on your prescription label. Never take this medicine in larger amounts, or for longer than prescribed. An overdose can damage your liver or cause . Tell your doctor if you feel an increased urge to use more of this medicine. Never share this medicine with another person, especially someone with a history of drug abuse or addiction. MISUSE CAN CAUSE ADDICTION, OVERDOSE, OR . Keep the medicine in a place where others cannot get to it. Selling or giving away this medicine is against the law. Measure liquid medicine carefully. Use the dosing syringe provided, or use a medicine dose-measuring device (not a kitchen spoon). If you need surgery or medical tests, tell the doctor ahead of time that you are using this medicine. You should not stop using this medicine suddenly. Follow your doctor's instructions about tapering your dose. Store at room temperature away from moisture and heat. Keep track of your medicine. You should be aware if anyone is using it improperly or without a prescription. Do not keep leftover opioid medication. Just one dose can cause in someone using this medicine accidentally or improperly. Ask your pharmacist where to locate a drug take-back disposal program. If there is no take-back program, flush the unused medicine down the toilet. What happens if I miss a dose? Since this medicine is used for pain, you are not likely to miss a dose. Skip any missed dose if it is almost time for your next dose. Do not use two doses at one time. What happens if I overdose? Seek emergency medical attention or call the Poison Help line at . An overdose of this medicine can be fatal, especially in a child or other person using the medicine without a prescription. Overdose symptoms may include nausea, vomiting, sweating, severe drowsiness, pinpoint pupils, slow breathing, or no breathing. Your doctor may recommend you get naloxone (a medicine to reverse an opioid overdose) and keep it with you at all times. A person caring for you can give the naloxone if you stop breathing or don't wake up. Your caregiver must still get emergency medical help and may need to perform CPR (cardiopulmonary resuscitation) on you while waiting for help to arrive. Anyone can buy naloxone from a pharmacy or local health department. Make sure any person caring for you knows where you keep naloxone and how to use it. What should I avoid while taking acetaminophen and hydrocodone? Avoid driving or operating machinery until you know how this medicine will affect you. Dizziness or drowsiness can cause falls, accidents, or severe injuries. Do not drink alcohol. Dangerous side effects or could occur. Ask a doctor or pharmacist before using any other medicine that may contain acetaminophen (sometimes abbreviated as APAP). Taking certain medications together can lead to a fatal overdose. What are the possible side effects of acetaminophen and hydrocodone? Get emergency medical help if you have signs of an allergic reaction: hives; difficulty breathing; swelling of your face, lips, tongue, or throat. Opioid medicine can slow or stop your breathing, and may occur. A person caring for you should give naloxone and/or seek emergency medical attention if you have slow breathing with long pauses, blue colored lips, or if you are hard to wake up. In rare cases, acetaminophen may cause a severe skin reaction that can be fatal. This could occur even if you have taken acetaminophen in the past and had no reaction. Stop taking this medicine and call your doctor right away if you have skin redness or a rash that spreads and causes blistering and peeling. Call your doctor at once if you have: ?? noisy breathing, sighing, shallow breathing, breathing that stops during sleep; ?? a light-headed feeling, like you might pass out; ?? liver problems--nausea, upper stomach pain, tiredness, loss of appetite, dark urine, myrtle-colored stools, jaundice (yellowing of the skin or eyes); or ?? low cortisol levels-- nausea, vomiting, loss of appetite, dizziness, worsening tiredness or weakness. Seek medical attention right away if you have symptoms of serotonin syndrome, such as: agitation, hallucinations, fever, sweating, shivering, fast heart rate, muscle stiffness, twitching, loss of coordination, nausea, vomiting, or diarrhea. Serious side effects may be more likely in older adults and those who are malnourished or debilitated. Long-term use of opioid medication may affect fertility (ability to have children) in men or women. It is not known whether opioid effects on fertility are permanent. Common side effects include: ?? dizziness, drowsiness, feeling tired; ?? nausea, vomiting, stomach pain; ?? constipation; or ?? headache. This is not a complete list of side effects and others may occur. Call your doctor for medical advice about side effects. You may report side effects to FDA at 0-827-NYK-1104. What other drugs will affect acetaminophen and hydrocodone? You may have breathing problems or withdrawal symptoms if you start or stop taking certain other medicines. Tell your doctor if you also use an antibiotic, antifungal medication, heart or blood pressure medication, seizure medication, or medicine to treat HIV or hepatitis C. Opioid medication can interact with many other drugs and cause dangerous side effects or . Be sure your doctor knows if you also use: ?? cold or allergy medicines, bronchodilator asthma/COPD medication, or a diuretic ('water pill'); ?? medicines for motion sickness, irritable bowel syndrome, or overactive bladder; ?? other narcotic medications--opioid pain medicine or prescription cough medicine; ?? a sedative like Valium--diazepam, alprazolam, lorazepam, Xanax, Klonopin, Versed, and others; ?? drugs that make you sleepy or slow your breathing--a sleeping pill, muscle relaxer, medicine to treat mood disorders or mental illness; ?? drugs that affect serotonin levels in your body--a stimulant, or medicine for depression, Parkinson's disease, migraine headaches, serious infections, or nausea and vomiting. This list is not complete. Other drugs may affect acetaminophen and hydrocodone, including prescription and [id number] medicines, vitamins, and herbal products. Not all possible interactions are listed here. Where can I get more information? Your doctor or pharmacist can provide more information about acetaminophen and hydrocodone. Remember, keep this and all other medicines out of the reach of children, never share your medicines with others, and use this medication only for the indication prescribed. Every effort has been made to ensure that the information provided by [employer]') is accurate, up-to-date, and complete, but no guarantee is made to that effect. Drug information contained herein may be time sensitive. [employer] information has been compiled for use by healthcare practitioners and consumers in the [place] and therefore [employer] does not warrant that uses outside of the [place] are appropriate, unless specifically indicated otherwise. [employer] drug information does not endorse drugs, diagnose patients or recommend therapy. [employer] drug information is an informational resource designed to assist licensed healthcare practitioners in caring for their patients and/or to serve consumers viewing this service as a supplement to, and not a substitute for, the expertise, skill, knowledge and judgment of healthcare practitioners. The absence of a warning for a given drug or drug combination in no way should be construed to indicate that the drug or drug combination is safe, effective or appropriate for any given patient. [employer] does not assume any responsibility for any aspect of healthcare administered with the aid of information [employer] provides. The information contained herein is not intended to cover all possible uses, directions, precautions, warnings, drug interactions, allergic reactions, or adverse effects. If you have questions about the drugs you are taking, check with your doctor, nurse or pharmacist. Copyright 1799-5727 [employer] Version: 16.02. Revision Date: 02/27/2020. Emergency Awareness and Preventative Care STROKE is an EMERGENCY Every Minute Counts Act FAST and Check for these signs: FACE Does the face look uneven? ARM Does one arm drift down? SPEECH Does their speech sound strange? TIME Call at any sign of stroke Stroke Risk Factors Atrial Fibrillation (irregular heartbeat) Diabetes Family history of stroke Heart Disease Heavy alcohol use High Blood Pressure High Cholesterol Physical inactivity and obesity Smoking Cigarette Smoking The facts are clear, cigarette smoking will shorten your life. Smoking can cause many illnesses along the way. As a healthcare provider, we recommend that you stop smoking. Assistance with quitting is available by contacting 5-493-RGLBNOW. This is a free resource providing counseling, support, and referral. Or you may contact your personal physician. [employer] Suicide Prevention Lifeline: The National Suicide Prevention Lifeline is a national network of local crisis centers that provides free and confidential emotional support to people in suicidal crisis or emotional distress 24 hours a day, 7 days a week. Don't Wait! Stop a Heart Attack Before it Starts What is a heart attack? A heart attack is damage or to a part of the heart from severely decreased or lack of blood flow to the heart. Over time, arteries can become narrow from the buildup of fat and cholesterol, which is called plaque. The plaque can rupture causing a blood clot to form. When the blood clot forms, the artery can become severely narrowed or completely blocked, causing a heart attack. Heart attack is the leading cause of in the [place]. 85% of muscle damage occurs within the first 2 hours. Delay in the recognition of heart attack symptoms increases the chances of . Know the early symptoms of a heart attack: Nausea Feeling of fullness in chest Jaw Pain Pain that travels down one or both arms Fatigue/being tired Anxiety Back Pain Chest pressure, squeezing, or discomfort Shortness of breath Sweating, or a cold sweat Feeling of impending doom There are unusual signs of a heart attack, too! Women, the elderly, and diabetics may present with atypical symptoms: Fainting/dizziness Weakness Confusion Risk Factors for a Heart Attack Some heart disease risk factors, such as age and family history, cannot be changed. Others, like smoking and lack of exercise, can be changed. Smoking High Cholesterol High Blood Pressure Family History Obesity Age Gender (Males are at higher risk) Lack of Exercise Diabetes Diet Stress Excessive Alcohol Intake If you or someone you know is experiencing the signs and symptoms of a heart attack, DON???T DELAY. Call immediately and seek help. If someone collapses, perform CPR! Do not attempt to drive if you are having symptoms of heart attack. Hands-Only CPR Why Hands-Only CPR? Hands-Only CPR has been shown to be as effective as conventional CPR for cardiac arrests that occur outside of a hospital. Survival depends on immediately receiving CPR from someone nearby. How do you perform Hands-Only CPR? There are two easy steps: Call 9-1-1 if you see a teen or adult collapse Push hard and fast in the center of the chest at a beat of 100 beats per minute. Save a life! 4 WAYS TO GET AHEAD OF SEPSIS SEPSIS is a MEDICAL EMERGENCY. Time matters! Infections put you and your family at risk for a life-threatening condition called sepsis. Sepsis is the body's extreme response to an infection. It is life-threatening, and without timely treatment, sepsis can rapidly lead to tissue damage, organ failure, and . Sepsis happens when an infection you already have-in your skin, lungs, urinary tract or somewhere else-triggers a chain reaction throughout your body. 1 PREVENT INFECTIONS Take good care of chronic conditions. Talk to your doctor about getting the recommended vaccines. 2 PRACTICE GOOD HYGIENE Wash your hands frequently. Keep cuts or open sores clean and covered until they are healed. 3 KNOW THE SYMPTOMS Confusion or disorientation Shortness of breath High heart rate Fever, shivering, or feeling very cold Extreme pain or discomfort Clammy or sweaty skin 4 ACT FAST Get medical care IMMEDIATELY if you suspect sepsis or if you have an infection that is not getting better or is getting worse. To learn more about sepsis and how to prevent infections, visit www.cdc.gov/sepsis. Test Results Laboratory or Other Results This Visit (last charted value for your 03/18/2020 visit) Hematology 03/18/2020 10:54 AM WBC: 7.6 K/uL -- Normal range between ( 4.5 and 10.5 ) RBC: 4.50 Million/uL -- Normal range between ( 3.93 and 5.22 ) Hct: 41.3 % -- Normal range between ( 34.1 and 44.9 ) Hgb: 13.8 g/dL -- Normal range between ( 11.2 and 15.7 ) Platelet Count: 214 K/uL -- Normal range between ( 163 and 369 ) MCH: 30.7 pg -- Normal range between ( 25.6 and 32.2 ) MCHC: 33.4 Gram/dL -- Normal range between ( 32.2 and 36.5 ) MCV: 91.8 fL -- Normal range between ( 79.0 and 94.8 ) Slide Review: No Eos %: 2.1 % -- Normal range between ( 0.0 and 7.0 ) [place] #: 0.62 K/uL -- Normal range between ( 0.16 and 1.00 ) Eos #: 0.16 x10(3)/uL -- Normal range between ( 0.00 and 0.80 ) [place] %: 8.1 % -- Normal range between ( 3.0 and 9.0 ) Baso %: 0.5 % -- Normal range between ( 0.0 and 1.5 ) Baso #: 0.04 x10(3)/uL -- Normal range between ( 0.00 and 0.20 ) RDW: 12.7 % -- Normal range between ( 11.7 and 14.9 ) Neut %: 61.9 % -- Normal range between ( 34.0 and 71.0 ) Neut #: 4.74 K/uL -- Normal range between ( 1.56 and 6.13 ) Lymph %: 26.7 % -- Normal range between ( 19.3 and 53.1 ) Lymph #: 2.04 x10(3)/uL -- Normal range between ( 1.00 and 3.90 ) MPV: 9.1 fL -- Normal range between ( 9.4 and 12.4 ) IG#: 0.05 x10(3)/uL -- Normal range between ( 0.00 and 0.05 ) IG%: 0.70 % -- Normal range between ( 0.00 and 0.60 ) General Chemistry 03/18/2020 10:54 AM Creatinine Level: 0.70 mg/dL -- Normal range between ( 0.55 and 1.02 ) Sodium Level: 140 mmol/L -- Normal range between ( 136 and 146 ) Potassium Level: 4.0 mmol/L -- Normal range between ( 3.5 and 5.1 ) Chloride Level: 108 mmol/L -- Normal range between ( 102 and 112 ) Carbon Dioxide Level: 25 mmol/L -- Normal range between ( 21 and 32 ) Anion Gap: 11 -- Normal range between ( 9 and 20 ) Bun/Creatinine: 10.0 -- Normal range between ( 8.0 and 20.0 ) Calcium Level: 9.1 mg/dL -- Normal range between ( 8.4 and 10.1 ) eGFR : >60 mL/min/1.73m2 eGFR NonAfrican: >60 mL/min/1.73m2 Glucose Level: 111 mg/dL -- Normal range between ( 74 and 106 ) Blood Urea Nitrogen: 7 mg/dL -- Normal range between ( 7 and 22 ) Endocrinology 03/18/2020 10:54 AM HCG Serum Quant: 3.0 mIU/mL Diagnostic Radiology 03/18/2020 2:30 PM CR Fluoro in OR: CR Fluoro in OR Patient Name:BUSHRA NORWOOD I have received and understand this information and was given the opportunity to ask questions. Patient/Boiler Cleaner Name: Patient/Boiler Cleaner Signature: Relationship to Patient: Clinician/Hospital Boiler Cleaner Signature: Date: Electronically signed by Raymon, [facility] Conversion Steel Box Toe Inserter Taylorner at 06/04/2022 6:36 PM CDT documented in this encounter Plan of Treatment Not on file documented as of this encounter Visit Diagnoses Not on filedocumented in this encounter
--- OUTSIDE RECORDS SUMMARY | 2024-10-10 12:30 | XMS_ITS | Encounter Summary ---
Author Organization [employer] ([place], [place], [place], [place]) Address [address] [place] [address] Care Team Providers Care Electrical Engineering Manager Name Role Phone Unavailable Primary Care Provider Unavailabl e Encounter Details Date Type Department Care Team (Late st Contact Info) Description 03/19/2020 Transcribed Document [facility] [place] Family Medicine [facility] [place] [address] ProviderDamion MD [address] [place] [address] Social History Tobacco Use Types [...] Conversion Note - Historical ProviderMD - 03/19/2020 1:24 AM INTERNET CAFE MANAGER Education-Wound Care Entered On: 03/19/2020 1:28 EST Performed On: 03/19/2020 1:24 EST by KARUNA VANG RN Teaching/Learning Assessment Barriers To Learning : None evident KARUNA VANG RN - 03/19/2020 1:28 EST documented in this encounter Plan of Treatment Not on file documented as of this encounter Visit Diagnoses Not on filedocumented in this encounter
--- OUTSIDE RECORDS SUMMARY | 2024-10-10 12:30 | XMS_ITS | Encounter Summary ---
Author Organization [employer] ([place], [place], [place], [place]) Address [address] [place] [address] Care Team Providers Care Integration Engineer Name Role Phone Unavailable Primary Care Provider Unavailabl e Encounter Details Date Type Department Care Team (Late st Contact Info) Description 03/19/2020 Transcribed Document [facility] [place] [facility] [place] [address] ProviderDamion MD [facility] [place] [id number] Social History Tobacco Use Types Packs/Day Years Used Date Smoking Tobacco: Never Assessed Comments Unknown Sex and Gender Information Value Date Recorded Sex Assigned at Female 08/13/2021 6:30 PM CDT Legal Sex Female 1:15 PM CDT Gender Identity Female 08/13/2021 6:30 PM CDT Sexual Orientation Not on file documented as of this encounter Miscellaneous Notes * Cerner Conversion Note - Damion ProviderMD - 03/19/2020 11:52 AM MICROSOFT INFRASTRUCTURE CONSULTANT Final Discharge Planning Entered On: 03/19/2020 11:53 EST Performed On: 03/19/2020 11:52 EST by SULMA CANTU RN-Winding Inspector Final Discharge Planning Discharge Arrangements : Patient Post-Acute Information Patient Name: BUSHRA ROMERO Gender: Female : [birth year] Age: 54 Years No Post-Acute Placement(s) Listed No Post-Acute Service(s) Listed No [place] Referral(s) Listed Important Medicare Message Reviewed With : Other: Commercial/Obs Transportation Needs : Family/Friend Follow Up Appointment Scheduled : Yes Is Patient High/Moderate Readmission Risk? : No Patient/Family Notified of Plan : Yes Support Person/Pt Rep Notified of Plan : Yes Patient/Family Notified : Spouse Is Patient Ready for Discharge? : Yes Physician Notified Patient is Ready for Discharge? : Yes Discharge To Care Management : Home/Residential/Halfway or Self Care -01 SULMA CANTU RN-Winding Inspector - 03/19/2020 11:52 EST Electronically signed by Raymon [facility] Conversion Naphthalene Operator Cerner at 06/04/2022 6:41 PM CDT documented in this encounter Plan of Treatment Not on file documented as of this encounter Visit Diagnoses Not on filedocumented in this encounter
--- OUTSIDE RECORDS SUMMARY | 2024-10-10 12:30 | XMS_ITS | Encounter Summary ---
Author Organization [employer] ([place], [place], [place], [place]) Address [address] [place] [address] Care Team Providers Care Machine Finisher Name Role Phone Unavailable Primary Care Provider Unavailabl e Encounter Details Date Type Department Care Team (Late st Contact Info) Description 03/19/2020 Transcribed Document [facility] [place] [facility] [place] [address] ProviderDamion MD [facility] [place] [address] Social History Tobacco Use Types [...] Conversion Note - Historical ProviderMD - 03/19/2020 2:00 AM CREATIVE MANAGER Mixing Plant Dumper Details Entered On: 03/19/2020 1:28 EST Performed On: 03/19/2020 2:00 EST by KARUNA VANG RN Order Details Transport Mode Order Detail : Wheelchair Isolation Precautions Order Detail : Standard Precautions Order Detail : 0 IV Order Detail : 1 Oxygen Order Detail : 0 Nurse Collect Order Detail : 0 Lift/Transfer : Minimal Central Line Order Detail : No Room Service : Needs Assistance Arterial Line : No Patient Needs Meds Crushed/Liquid : No KARUNA VANG RN - 03/19/2020 1:28 EST documented in this encounter Plan of Treatment Not on file documented as of this encounter Visit Diagnoses Not on filedocumented in this encounter
--- OUTSIDE RECORDS SUMMARY | 2024-10-10 12:30 | XMS_ITS | Encounter Summary ---
Author Organization [employer] ([place], [place], [place], [place]) Address [address] [place] [address] Care Team Providers Care Commercial Field Inspector Name Role Phone Unavailable Primary Care Provider Unavailabl e Encounter Details Date Type Department Care Team (Late st Contact Info) Description 03/18/2020 Transcribed Document [facility] [place] [address] ProviderDamion MD [address] [place] [address] Social History Tobacco Use Types [...] Cerner Conversion Note - Historical ProviderMD - 03/18/2020 6:26 PM CERTIFIED MEETING PROFESSIONAL Meds to Bed Enrollment Entered On: 03/19/2020 7:15 EST Performed On: 03/18/2020 18:26 EST by ELLIOTT TOBIN RPh Meds to Bed Enrollment Patient Enrollment Decision: : Yes/enroll in meds to bed program ELLIOTT TOBIN RPh - 03/19/2020 7:15 EST Electronically signed by Patricia Ennis Conversion Crimping Machine Operator For Metal Cerner at 06/04/2022 6:49 PM CDT documented in this encounter Plan of Treatment Not on file documented as of this encounter Visit Diagnoses Not on filedocumented in this encounter
--- OUTSIDE RECORDS SUMMARY | 2024-10-10 12:30 | XMS_ITS | Encounter Summary ---
Author Organization [employer] ([place], [place], [place], [place]) Address [address] [place] [address] Care Team Providers Care Movie Editor Name Role Phone Unavailable Primary Care Provider Unavailabl e Encounter Details Date Type Department Care Team (Late st Contact Info) Description 03/18/2020 Transcribed Document [facility] [place] Family Medicine [facility] [place] [address] ProviderDamion MD [facility] [place] [id number] Social History Tobacco Use Types Packs/Day Years Used Date Smoking Tobacco: Never Assessed Comments Unknown Sex and Gender Information Value Date Recorded Sex Assigned at Female 08/13/2021 6:30 PM CDT Legal Sex Female 1:15 PM CDT Gender Identity Female 08/13/2021 6:30 PM CDT Sexual Orientation Not on file documented as of this encounter Miscellaneous Notes * Cerner Conversion Note - Damion ProviderMD - 03/18/2020 9:55 AM CRYPTOLOGIST Admission History, Adult Entered On: 03/19/2020 1:26 EST Performed On: 03/18/2020 9:55 EST by KARUNA VANG RN Advance Directive Patient has Advance Directive *Q : Yes, Advance Directive not with the patient Advance Directive Type : Living will Copy Advance Directive Verified/on Chart : No KARUNA VANG RN - 03/19/2020 1:25 EST Anesthesia/Transfusion History Family History of Anesthesia Reaction : Prior transfusion without reaction Transfusion History : Prior anesthesia reaction Type of Anesthesia Reaction : Excessive nausea/vomiting Family History of Anesthesia Reaction : None KARUNA VANG RN - 03/19/2020 1:25 EST Functional Assessment Living Situation : Home Patient Lives With : Spouse Persons Assisting Patient at Home : Spouse Current Daily Living Assistance : None Sensory Deficits : None TRAMMELL Hx Falls Immediate/Within 3 Months : No Current Home Treatments : Apnea monitoring KARUNA VANG RN - 03/19/2020 1:25 EST General Info Preferred Name : Bushra Arrived From : Home Mode of Arrival on Unit : Ambulatory Legal Guardian : Unaccompanied Support Person/Pt Rep Contact Information : Yandel Nick, [place] Family/Rep/Phys Notified of Admit : No Emergency Contact #1 : Yandelkendy Romero Emergency Contact #1 Emergency Contact #1 Relationship : Emergency Contact #2 : none Emergency Contact #2 Phone Number : none Emergency Contact #2 Relationship : none Chief Complaint : neck pain radiating to right shoulder, RUE Primary Language : Uzbek Communication Barrier : None Scorekeeper Needed : KARUNA Hudson RN - 03/19/2020 1:25 EST Fall Risk Scales ABCs Fall Injury Risk Identification : Surgery ABC Fall Injury Risk : Moderate to high injury risk TRAMMELL Hx Falls Immediate/Within 3 Months : No Trammell Secondary Diagnosis : No TRAMMELL Use of Ambulatory Aid : Bed rest/Nurse assist TRAMMELL IV Therapy or IV Access : Yes Trammell Gait/Transferring : Impaired Trammell Mental Status : Overestimates/Forgets limitations Trammell Fall Risk Score : 55 TRAMMELL Fall Scale Risk Level : 46 or > High Risk KARUNA VANG RN - 03/19/2020 1:25 EST documented in this encounter Plan of Treatment Not on file documented as of this encounter Visit Diagnoses Not on filedocumented in this encounter
--- OUTSIDE RECORDS SUMMARY | 2024-10-10 12:30 | XMS_ITS | Encounter Summary ---
Author Organization [employer] ([place], [place], [place], [place]) Address [address] [place] [address] Care Team Providers Care Decoration Checker Name Role Phone Unavailable Primary Care Provider Unavailabl e Encounter Details Date Type Department Care Team (Late st Contact Info) Description 03/18/2020 Transcribed Document [facility] [place] Family Medicine Formerly [facility] [place] [address] ProviderDamion MD Formerly [facility] [place] [address] Social History Tobacco Use Types [...] Conversion Note - Damion ProviderMD - 03/18/2020 12:26 PM CHEMICAL EDUCATOR [facility] Main OR IntraOp Summary Primary Physician: VALE CARRILLO MD Finalized Date/Time: 03/20/20 08:36:26 Pt. Name: BUSHRA NORWOOD D.O.B./Sex: 1965 Female Med Rec #: [id number] Physician: VALE CARRILLO MD Financial #: [id number] Pt. Type: O Room/Bed: 652/1 Admit/Disch: 03/18/20 10:05:00 - 03/19/20 12:52:00 Institution: [facility] IntraOp Case Attendance Entry 1 Entry 2 Entry 3 Case Attendee VALE CARRILLO MD Byrd, Charlie D, RN Summers, Jennifer, [place] Pref Card Builder Role Performed Surgeon/Proceduralist, Hand I Cutter, First Scrub, First First Time In 03/18/20 11:53:00 03/18/20 11:53:00 03/18/20 11:53:00 Time Out 03/18/20 14:11:00 03/18/20 14:11:00 03/18/20 14:11:00 Procedure Cervical Discectomy Cervical Discectomy Cervical Discectomy Fusion Anterior Fusion Anterior Fusion Anterior Other Attendee Superficial Wound Closed By: Last Modified By: Leonardo Delgado, Leonardo Champion, RN Leonardo Delgado, RN 03/18/20 14:11:41 03/18/20 14:11:41 03/18/20 14:11:41 Entry 4 Entry 5 Entry 6 Case Attendee FELIPE DAVIS PA ARRINGTON, ASHLEY, CIERRA Champion, Thania, Diagnostic Gathering Machine Setter Role Performed Physician assistant branch operations manager [employer] SOFTWARE DEVELOPER/Nurse [place] Concrete Mixer Truck Driver Time In 03/18/20 11:53:00 03/18/20 11:53:00 03/18/20 11:53:00 Time Out 03/18/20 14:11:00 03/18/20 14:11:00 03/18/20 14:11:00 Procedure Cervical Discectomy Cervical Discectomy Cervical Discectomy Fusion Anterior Fusion Anterior Fusion Anterior Other Attendee Superficial Wound Closed By: Last Modified By: Leonardo Delgado, Leonardo Champion, Leonardo Champion, RN 03/18/20 14:11:41 03/18/20 14:11:41 03/18/20 14:11:41 Entry 7 Entry 8 Case Attendee OTHER, ATTENDEE #1 LETHA MCCABE MD-ANS Role Performed Vendor Anesthesiologist of Record Time In 03/18/20 11:53:00 03/18/20 11:53:00 Time Out 03/18/20 14:11:00 03/18/20 14:11:00 Procedure Cervical Discectomy Cervical Discectomy Fusion Anterior Fusion Anterior Other Attendee Superficial Wound Closed By: Last Modified By: Leonardo Delgado, Leonardo Champion, RN 03/18/20 14:11:41 03/18/20 14:11:41 [facility] IntraOp Case Attendance Audit 03/18/20 14:11:41 Director Business Development: MARVIN Modifier: [email or web address] <+> Time Out 1 <*> Procedure Cervical Discectomy Fusion Anterior 2 <+> Time In 2 <+> Time Out 2 <*> Procedure Cervical Discectomy Fusion Anterior 3 <+> Time In 3 <+> Time Out 3 <*> Procedure Cervical Discectomy Fusion Anterior 4 <+> Time In 4 <+> Time Out 4 <*> Procedure Cervical Discectomy Fusion Anterior 5 <+> Time In 5 <+> Time Out 5 <*> Procedure Cervical Discectomy Fusion Anterior 6 <+> Time In 6 <+> Time Out 6 <*> Procedure Cervical Discectomy Fusion Anterior 7 <+> Time In 7 <+> Time Out 7 <*> Procedure Cervical Discectomy Fusion Anterior 8 <+> Time In 8 <+> Time Out 8 <*> Procedure Cervical Discectomy Fusion Anterior 03/18/20 12:27:37 Director Business Development: MARVIN Modifier: [email or web address] <+> 1 Time In <+> 1 Procedure <+> 2 Case Attendee <+> 2 Role Performed <+> 2 Procedure <+> 3 Case Attendee <+> 3 Role Performed <+> 3 Procedure <+> 4 Case Attendee <+> 4 Role Performed <+> 4 Procedure <+> 5 Case Attendee <+> 5 Role Performed <+> 5 Procedure <+> 6 Case Attendee <+> 6 Role Performed <+> 6 Procedure <+> 7 Case Attendee <+> 7 Role Performed <+> 7 Procedure <+> 8 Case Attendee <+> 8 Role Performed <+> 8 Procedure [facility] IntraOp Case Times Entry 1 Patient In Room Time 03/18/20 11:53:00 Out Room Time 03/18/20 14:11:00 Anesthesia Start Time 03/18/20 11:53:00 Stop Time 03/18/20 14:11:00 Surgery / Procedure Times Start Time 03/18/20 12:26:00 Stop Time 03/18/20 14:02:00 Last Modified By: Leonardo Delgado RN 03/18/20 14:11:39 [facility] IntraOp Case Times Audit 03/18/20 14:11:39 Director Business Development: [email or web address] Modifier: [email or web address] <+> 1 Out Room Time <+> 1 Stop Time 03/18/20 14:02:50 Director Business Development: [email or web address] Modifier: [email or web address] <+> 1 Stop Time 03/18/20 12:25:28 Director Business Development: [email or web address] Modifier: [email or web address] <+> 1 Start Time [facility] IntraOp Cautery Entry 1 Entry 2 ESU Identification Cautery Type Monopolar ESU BiPolar ESU Cautery Type Comments ID Number [id number] ID Type Hospital Number Hospital Number Cautery Settings Cut Setting 40 8 Coag Setting 40 40 Blend Setting Bipolar Setting Argon Setting Argon [facility] ESU Grounding Pad Ground Pad Type Adult Grounding Pad Type Comment Grounding Pad Site Right thigh Grounding Pad Site WNL Comment Grounding Pad Leonardo Delgado RN Applied By Grounding Pad Site Warm, Dry, Intact Skin Condition Before Cautery Site Skin Condition WDL Before Comment Grounding Pad Site Unchanged Skin Condition After Cautery Site Skin Condition WDL After Comment Last Modified By: Leonardo Delgado RN Byrd, Charlie D, RN 03/18/20 12:29:10 03/18/20 12:29:10 [facility] IntraOp Communication Entry 1 Communication To Family/Significant other Comment START Communication By Leonardo Delgado RN Date and Time 03/18/20 12:26:00 Last Modified By: Leonardo Delgado RN 03/18/20 12:27:59 [facility] IntraOp Communication Audit 03/18/20 12:27:59 Director Business Development: [email or web address] Modifier: [email or web address] <+> 1 Communication By <+> 1 Date and Time [facility] IntraOp Counts Verification Entry 1 Procedure Cervical Discectomy Fusion Anterior Count Info Count Type Sponge, Sharps, Miscellaneous Counts Verification Baseline/pre-procedure Sequence Count Results Not Applicable Counts Performed By Count Performed By Enid Myers, (Scrub) Jasbir Pref Card Builder Count Performed By Leonardo Delgado RN (RN) Last Modified By: Leonardo Delgado RN 03/18/20 12:27:50 [facility] IntraOp Counts Final Entry 1 Procedure Cervical Discectomy Fusion Anterior Final Count Info Count Type Sponge, Sharps, Miscellaneous Counts Verification Skin Closure/end of Sequence procedure Count Results Correct, surgeon notified Counts Performed By Count Performed By Enid Myers, (Scrub) Jasbir Pref Card Builder Count Performed By Leonardo Delgado RN (RN) Last Modified By: Leonardo Delgado RN 03/18/20 14:01:19 [facility] IntraOp Delays Entry 1 Delay Reason Surgeon late - did not call Duration 23 Minute(s) Last Modified By: Leonardo Delgado RN 03/18/20 12:29:19 [facility] IntraOp Departure from OR Entry 1 Integumentary Assessment Integumentary WDL Assessment WDL Transfer/Handoff Transfer to PACU Phase I Handoff Method Bedside/Face to face, Phone call Post-op Transport Stretcher/Gurney Via Patient Transport FELIPE DAVIS PA, Accompanied by SANFORD DOWNS APRN Last Modified By: Leonardo Delgado RN 03/18/20 12:32:41 [facility] IntraOp Dressing and Packing Entry 1 Type Dressing Location Opsite Wound Dressing Item Steristrip, Skin adhesive, Occlusive dressing Applied By FELIPE DAVIS PA Other Comments MASTISOL, STERISTRIPS, COVADERM Last Modified By: Leonardo Delgado RN 03/18/20 12:32:57 [facility] IntraOp Fire Risk Assessment Entry 1 Fire Info Surgical Site or 1- Yes Incision Above the Xyphoid Open O2 Source 0- No (Mask or Cannula) Available Ignition 1- Yes (ESU, Laser, Light Source) Fire Risk 2 Assessment Score Fire Score Fire Risk Yes Assessment Complete Fire Risk Leonardo Delgado RN Assessment Verified By Fire Risk 03/18/20 11:52:00 Assessment Verified Date/Time Fire Risk Standard Fire Yes Safety Precautions Followed Last Modified By: Leonardo Delgado RN 03/18/20 12:29:44 [facility] IntraOp General Case Transition Lead 1 Case Information OR OR [facility] Case Level 1 Room Verified Yes Wound Class I - Clean Specialty SN Neurosurgery Anesthesia Type General ASA Class 3 Diagnosis Preop Diagnosis CERVICAL STENOSIS Postop Same As Preop No Postop Diagnosis SEE MD POST OP NOTE Last Modified By: Leonardo Delgado RN 03/18/20 12:30:02 [facility] IntraOp Implant Log Entry 1 Entry 2 Entry 3 Type Tissue Implant Implant (Synthetic) Implant (Synthetic) (Biologic) Implant Log Implant Type Hardware Hardware Tissue Implant Type Bone Implant MATRIX FIBERCEL VIABLE IMPLT ENDOSKL PEEK SPINE BHARAT Identification [id number] Description Implant Quantity 1 1 1 Implant Site OP SITE OP SITE OP SITE Implant Identification Model Number Implant 160 Identification Serial Number Implant [id number] Identification Lot Number Implant Medtronic:Spinal Graft MEDTRONIC SPINE TITAN Medtronic:Spine:Sofamor Identification Jessica Carton Forming Machine Tender Name: Implant [id number] Identification Catalog Number Implant Size Implant Has an Yes Yes Yes Expiration Date Implant Expiration 07/17/21 06/05/24 08/02/27 Date Wasted Radioactive Material Time Implanted Tissue Implant Continue for Tissue Implant Documentation Tissue Identification Number Graft Prep Per Carton Forming Machine Tender Instructions: Tissue Preparation Method: Reconstitution Solution: Reconstitution Solution Lot Number Reconstitution Solution Expiration Date: Thawing Solution Thawing Solution Lot Number Thawing Solution Expiration Date Preparation Materials, Other Preparation Materials, Other Lot Number Preparation Materials, Other Expiration Date Tissue Prepared/Processed By Carton Forming Machine Tender Paperwork Completed Implant Type Comment Last Modified By: Leonardo Delgado, Leonardo Champion RN Byrd, Charlie D, RAUL 03/18/20 12:50:18 03/18/20 13:24:37 03/18/20 13:41:56 Entry 4 Entry 5 Entry 6 Type Implant (Synthetic) Implant (Synthetic) Implant (Synthetic) Implant Log Implant Type Hardware Hardware Hardware Tissue Implant Type Implant PLT ZEVO 2LEVEL SCR ZEVO [id number] SCR ZEVO SCOTT ANG Identification [id number] Description Implant Quantity 1 5 1 Implant Site OP SITE OP SITE OP SITE Implant Identification Model Number Implant Identification Serial Number Implant Identification Lot Number Implant Medtronic:Spinal Medtronic:Spine:Sofamor Medtronic:Spine:Sofamor Identification Cristian Lopez Carton Forming Machine Tender Name: Implant [id number] Identification Catalog Number Implant Size Implant Has an Expiration Date Implant Expiration Date Wasted Radioactive Material Time Implanted Tissue Implant Continue for Tissue Implant Documentation Tissue Identification Number Graft Prep Per Carton Forming Machine Tender Instructions: Tissue Preparation Method: Reconstitution Solution: Reconstitution Solution Lot Number Reconstitution Solution Expiration Date: Thawing Solution Thawing Solution Lot Number Thawing Solution Expiration Date Preparation Materials, Other Preparation Materials, Other Lot Number Preparation Materials, Other Expiration Date Tissue Prepared/Processed By Carton Forming Machine Tender Paperwork Completed Implant Type Comment Last Modified By: Leonardo Delgado RN Byrd, Charlie D, RN Byrd, Charlie D, RN 03/18/20 14:08:05 03/18/20 14:08:05 03/18/20 14:08:05 [facility] IntraOp Implant Log Audit 03/18/20 14:08:05 Director Business Development: MARVIN Modifier: MARVIN <+> 4 Implant Identification Description <+> 4 Implant Identification Carton Forming Machine Tender Name: <+> 4 Implant Site <+> 4 Implant Quantity <+> 4 Implant Identification Catalog Number <+> 4 Implant Type <+> 4 Type <+> 5 Implant Identification Description <+> 5 Implant Identification Carton Forming Machine Tender Name: <+> 5 Implant Site <+> 5 Implant Quantity <+> 5 Implant Identification Catalog Number <+> 5 Implant Type <+> 5 Type <+> 6 Implant Identification Description <+> 6 Implant Identification Carton Forming Machine Tender Name: <+> 6 Implant Site <+> 6 Implant Quantity <+> 6 Implant Identification Catalog Number <+> 6 Implant Type <+> 6 Type 03/18/20 13:41:56 Director Business Development: MARVIN Modifier: [email or web address] <+> 3 Implant Identification Description <+> 3 Implant Identification Lot Number <+> 3 Implant Identification Carton Forming Machine Tender Name: <+> 3 Implant Expiration Date <+> 3 Implant Site <+> 3 Implant Quantity <+> 3 Implant Identification Catalog Number <+> 3 Implant Type <+> 3 Implant Has an Expiration Date <+> 3 Type 03/18/20 13:24:37 Director Business Development: MARVIN Modifier: [email or web address] <+> 2 Implant Identification Description <+> 2 Implant Identification Lot Number <+> 2 Implant Identification Carton Forming Machine Tender Name: <+> 2 Implant Expiration Date <+> 2 Implant Site <+> 2 Implant Quantity <+> 2 Implant Identification Catalog Number <+> 2 Implant Type <+> 2 Implant Has an Expiration Date <+> 2 Type [facility] IntraOp Intraoperative Assessment Entry 1 Handoff Method Online nursing summary Valid History / Yes Physical in Chart Preoperative Yes Checklist Reviewed/Evaluated Allergies Reviewed Yes Patient is Latex No Sensitive Isolation Not applicable Precautions Noted Level of WDL Consciousness (WDL = Alert, Oriented to Person, Place, and Time) Skin Assessment No Verified Present Upon IVs Arrival to OR Last Modified By: Leonardo Delgado RN 03/18/20 12:30:10 [facility] IntraOp Intraoperative Equipment Entry 1 Type Equipment Equipment Equipment Sola Suction System ID Number [id number] Setting 180 MM HG Intraop Monitoring Electrocardiogram Five lead placement (ECG) Electrode Placement Blood Pressure Non-Invasive BP Device Source Blood Pressure Arm, left lower Location Pulse Oximeter Hand, right Probe Site Antiembolic Devices Antiembolic Devices Sequential compression device, knee high Antiembolic Device Bilateral Location Antiembolic Device [id number] ID Number Scopes Photo/Video Documentation Last Modified By: Leonardo Delgado RN 03/18/20 12:30:38 [facility] IntraOp Medication Admin Entry 1 Entry 2 Entry 3 Medication/Irrigant lidocaine 1% w/ Bacitracin 50,00units thrombin 5000units epinephrine 1:100,000 powder vial topical powder - 30ml vial - [id number] Combo Med List Time Administered Route of LOCAL ADDED TO NS IRRIGATION TOPICAL Administration Dose Dose 4 [id number] 5000 Unit of Measure ml units units Volume Administered By VALE CARRILLO MD PHILLIPS, GABRIEL, MD PHILLIPS, GABRIEL, MD Procedure Irrigation Irrigant Volume In Irrigant Volume Out Last Modified By: Leonardo Delgado RN Byrd, Charlie D, RN Byrd, Charlie D, RN 03/18/20 12:31:19 03/18/20 12:31:19 03/18/20 12:31:19 Entry 4 Entry 5 Medication/Irrigant SPNG SURGFOAM MATRIX FLOSEAL HEMO [id number] 10ML [id number] Combo Med List Time Administered Route of TOPICAL TOPICAL Administration Dose Dose 1 10 Unit of Measure pkt ml Volume Administered By VALE CARRILLO MD PHILLIPS, GABRIEL, MD Procedure Irrigation Irrigant Volume In Irrigant Volume Out Last Modified By: Leonardo Delgado RN Byrd, Charlie D, RN 03/18/20 12:31:19 03/18/20 13:21:35 [facility] IntraOp Medication Admin Audit 03/18/20 13:21:35 Director Business Development: [email or web address] Modifier: [email or web address] <+> 5 Medication/Irrigant <+> 5 Route of Administration <+> 5 Administered By <+> 5 Dose <+> 5 Unit of Measure [facility] IntraOp Patient Positioning Entry 1 Procedure Cervical Discectomy Fusion Anterior Body Position Supine Left Arm Position Tucked and padded at side Right Arm Position Tucked and padded at side Left Leg Position Uncrossed, parallel Right Leg Position Uncrossed, parallel Feet Uncrossed Yes Pressure Points Yes Checked Positioning Devices Safety Strap, Thighs, Head Rest, Willy Table, Traction Devices, Pad, Elbow Device Position Donut headrest, CHIN STRAP WITH 7LBS WEIGHTED TRACTION Positioned By Leonardo Delgado, RAUL, VALE CARRILLO MD, FELIPE DAVIS PA, SANFORD DOWNS APRN Position Verified Positioning Yes Verified by Anesthesia Positioning Yes Verified by Surgeon Last Modified By: Leonardo Delgado RN 03/18/20 12:31:50 [facility] IntraOp Sign In Entry 1 Patient, Site, Yes Procedure Identified Surgical Consent Yes Confirmed Relevant Surgical Yes Documents Available Surgical Site N/A Marked by person performing procedure Anesthesia Machine Yes Check Completed Medication Checks Yes Completed Allergies Yes Airway Difficult Yes Airway/Aspiration Risk Difficult Yes Airway/Aspiration Intervention Equipment Available Blood Loss Risk Yes Blood Loss Yes Intervention Equipment Prepared and Ready Blood Identifiers Not applicable Verified Per Policy Hypothermia Risk Yes Warming Measures Yes Taken Last Modified By: Leonardo Delgado RN 03/18/20 12:32:07 [facility] IntraOp Sign In Audit 03/18/20 12:32:07 Director Business Development: MARVIN Modifier: [email or web address] 1 <*> Difficult Airway/Aspiration Risk No 1 <*> Blood Loss Risk No [facility] IntraOp Sign Out Entry 1 RN Confirmation Surgical Yes Procedure(s) Identified Instrument, Sponge Yes and Sharps Counts Correct/Documented Equipment Problems Yes Documented Specimen Labeled Yes Correctly Urinary Catheter N/A Documented in IView [place] Patient Yes Recovery Concerns Reviewed with Anesthesia Provider, Surgeon and RN [place] Patient Yes Management Concerns Reviewed with Anesthesia Provider, Surgeon and RN Safety Checklist Yes Elements Complete? RN Sign Out Leonardo Delgado RN Signature RN Sign Out 03/18/20 14:11:00 Signature Date/Time Plan of Care Outcome - Fire Risk OUTCOME STATEMENT: Goal met Patient is free from injury related to surgical fire Plan of Care Outcome - Pt Positioning OUTCOME STATEMENT: Goal met Absence of signs and symptoms of positioning injury. Plan of Care Outcome - Skin Prep OUTCOME STATEMENT: Goal met Intraoperative care is consistent with measures to prevent infection Plan of Care Outcome - Xray/Images OUTCOME STATEMENT: Goal met Absence of observable signs or symptoms of radiation injury Plan of Care Outcome - Counts OUTCOME STATEMENT: Goal met Absence of signs and symptoms of injury related to extraneous objects Last Modified By: Leonardo Delgado RN 03/18/20 14:11:46 [facility] IntraOp Sign Out Audit 03/18/20 14:11:46 Director Business Development: MARVIN Modifier: [email or web address] <+> 1 RN Sign Out Signature <+> 1 RN Sign Out Signature Date/Time 03/18/20 12:32:13 Director Business Development: MARVIN Modifier: [email or web address] <+> 1 Urinary Catheter Documented in IView [facility] IntraOp Skin Prep Entry 1 Entry 2 Procedure Cervical Discectomy Cervical Discectomy Fusion Anterior Fusion Anterior Prescribed Yes Yes Pre-Surgical Prep Completed Prep Area neck neck Intraop Prep Integumentary WDL WDL Assessment WDL WDL Patient Exceptions Patients Normal Integumentary Variance(s) Integumentary Assessment Comment Prep Agents Chlorhexadine DuraPrep gluconate, Alcohol Prep by VALE CARRILLO MD Byrd, Charlie D, RN Skin Prep Comment Hair Removal Methods No hair removal No hair removal performed performed Hair Removal Site Hair Removal By Last Modified By: Leonardo Delgado RN Byrd, Charlie D, RN 03/18/20 12:32:29 03/18/20 12:32:29 [facility] IntraOp Surgical Procedures Entry 1 Procedure Cervical Discectomy Fusion Anterior Additional (C5-7 ACDF) Procedure Description Primary Procedure Yes Primary Surgeon VALE CARRILLO MD Start 03/18/20 12:26:00 Stop 03/18/20 14:02:00 Anesthesia Type General Specialty SN Neurosurgery Wound Class I - Clean Last Modified By: Leonardo Delgado RN 03/18/20 14:02:53 [facility] IntraOp Surgical Procedures Audit 03/18/20 14:02:53 Director Business Development: MARVIN Modifier: MARVIN <+> 1 Stop [facility] IntraOp Temp Regulation Devices Entry 1 Temp Regulation Temperature Warm blankets, Forced Regulation Device Air Warming device Temperature 47546 Regulation Device Serial/Unit Number Temperature Lower body Regulation Site Temperature Device 43 C Setting Temperature SANFORD DOWNS APRN Regulation Device Applied by Last Modified By: eLonardo Delgado RN 03/18/20 12:29:33 [facility] IntraOP Time Out Entry 1 Procedure to be Cervical Discectomy Performed Fusion Anterior Time Out Time Out Pause Time 03/18/20 12:25:00 All activity Yes suspended (unless life threatening emergency) Team Verbally Correct patient Confirms Information identity, Correct side and site are marked, Consent form is present and accurate, Agreement on the procedure to be done, Correct patient position, Relevant images/results properly labeled/appropriately displayed, Confirm antibiotics have been administered, Confirm the skin prep has dried, Confirm prosthesis/implant/devic e is present, Performed in location of procedure after prepped/draped Antibiotic Yes Prophylaxis Administered Or In Progress Within the Last 60 Minutes Beta Teressa N/A Administered Venous Yes Thromboembolism Prophylaxis Required Anticipated Critical Events Surgeon None expected Anesthesia Provider None expected Nursing Assures Sterility of instruments, Equipment concerns or issues, Implant Availability Essential Imaging Yes Labeled and Displayed Last Modified By: Leonardo Delgado RN 03/18/20 12:25:24 [facility] IntraOp X-Ray and Images Entry 1 X-Ray/Imaging Type Fluoroscopy Fluoroscopy Type C-Arm Site neck Spice Cleaner Name Jaycee Thania, Diagnostic Gathering Machine Setter Protective Devices Yes Used Last Modified By: Leonardo Delgado RN 03/18/20 12:28:04 Case Comments <None> Finalized By: CHIRAG MEDINA Document Signatures Signed By: Leonardo Delgado RN 03/18/20 14:11 CHIRAG MEDINA 03/20/20 08:36 Unfinalized History Date/Time Username Reason for Unfinalizing Freetext Reason for Unfinalizing 03/20/20 08:33 WATROSI Correct Billing documented in this encounter Plan of Treatment Not on file documented as of this encounter Visit Diagnoses Not on filedocumented in this encounter
--- OUTSIDE RECORDS SUMMARY | 2024-10-10 12:30 | XMS_ITS | Referral Summary ---
Author Organization [employer] ([place], [place], [place], [place]) Address [address] [place] [address] Care Team Providers Care Transferrer Name Role Phone Unavailable Primary Care Provider Unavailabl e Social History Tobacco Use Types Packs/Day Years Used Date Smoking Tobacco: Never Assessed Comments Unknown Sex and Gender Information Value Date Recorded Sex Assigned at Female 08/13/2021 6:30 PM CDT Legal Sex Female 1:15 PM CDT Gender Identity Female 08/13/2021 6:30 PM CDT Sexual Orientation Not on file Plan of Treatment Not on file
--- OUTSIDE RECORDS SUMMARY | 2024-10-10 12:30 | XMS_ITS | Encounter Summary ---
Author Organization [employer] ([place], [place], [place], [place]) Address [address] [place] [address] Care Team Providers Care Shuttle Inspector Name Role Phone Unavailable Primary Care Provider Unavailabl e Encounter Details Date Type Department Care Team (Late st Contact Info) Description 03/18/2020 Transcribed Document [facility] [place] Family Medicine [facility] [address] ProviderDamion MD [facility] [address] Social History Tobacco Use Types [...] Conversion Note - Damion ProviderMD - 03/18/2020 2:51 PM HOUSE SHORER Pain Assessment Entered On: 03/19/2020 5:41 EST Performed On: 03/19/2020 2:58 EST by KARUNA VANG RN Intervention Information: acetaminophen-oxyCODONE Performed by KARUNA VANG RN on 03/19/2020 01:58:00 EST acetaminophen-oxyCODONE,2Tab Oral,Pain (Moderate 4-6) Pain Assessment Pain Assessment : Follow-up assessment Pain Scale Goal : 3 Pain Scale Used : 0-10 Scale Location : Neck, anterior KARUNA VANG RN - 03/19/2020 5:41 EST Pain Scale Intensity : 4 KARUNA VANG RN - 03/19/2020 5:41 EST Image 4 - Images currently included in the form version of this document have not been included in the text rendition version of the form. documented in this encounter Plan of Treatment Not on file documented as of this encounter Visit Diagnoses Not on filedocumented in this encounter
--- OUTSIDE RECORDS SUMMARY | 2024-10-10 12:30 | XMS_ITS | Clinical Summary ---
Author Organization [facility] Address [address] [place] [address] Phone Care Team Providers Care Agile Qa Tester Name Role Phone Unavailable Primary Care Provider Unavailabl e Social History Tobacco Use Types Packs/Day Years Used Date Smoking Tobacco: Never Assessed Comments Unknown Sex and Gender Information Value Date Recorded Sex Assigned at Not on file Legal Sex Female 10:21 AM EST Gender Identity Not on file Sexual Orientation Not on file Plan of Treatment Health Maintenance Due Date Last Done Comments Annual Wellness Exam 1969 DTaP/TDaP/Td (1 - Tdap) 1985 Hepatitis B Vaccine (1 of 3 - 19+ 3-dose series) 1985 Cervical Cancer Screening 08/27/1987 Pap Smear 08/27/1987 HPV/Pap Cotest 1996 Breast Cancer Screening 2006 Cologuard 08/27/2011 Colon Cancer Screening 08/27/2011 Colonoscopy 08/27/2011 FIT 08/27/2011 Sigmoidoscopy 08/27/2011 Virtual Colonography 08/27/2011 Pneumococcal Vaccine 50+ (1 of 1 - PCV) 2016 Zoster (1 of 2) 2016 COVID-19 Vaccine ( - 2023-2 5 season) 2023 Influenza Vaccine (#1) 2024 Meningococcal B Vaccine Aged Out No l onger eligible based on patient's age to complete this topic Insurance [employer] PPO
--- OUTSIDE RECORDS SUMMARY | 2024-10-10 12:30 | XMS_ITS | Encounter Summary ---
Author Organization [employer] ([place], [place], [place], [place]) Address [address] [place] [address] Care Team Providers Care Aws Architect Name Role Phone Unavailable Primary Care Provider Unavailabl e Encounter Details Date Type Department Care Team (Late st Contact Info) Description 03/19/2020 Transcribed Document [facility] [place] Family Medicine [facility] [place] [address] ProviderDamion MD [facility] [place] [id number] Social History Tobacco Use Types Packs/Day Years [...] Conversion Note - Damion ProviderMD - 03/19/2020 11:51 AM PUBLICATION EDITOR Initial Discharge Planning Entered On: 03/19/2020 11:52 EST Performed On: 03/19/2020 11:51 EST by SULMA CANTU RN-Recovery Operator Helper Initial Assessment I Previously Documented Living Environment : No qualifying data available. Living Situation : Home Patient Lives With : Spouse Is the Patient a Caregiver at Home? : No Emergency Contact #1 : Yandel Romero Emergency Contact #1 Emergency Contact #1 Relationship : Emergency Contact #2 : none Emergency Contact #2 Phone Number : none Emergency Contact #2 Relationship : none Enter Doctors Name : JUDY GALLARDO (REF) T Does Patient have PCP Listed? : Yes SULMA CANTU RN-Recovery Operator Helper - 03/19/2020 11:51 EST Initial Assessment II Sensory and Motor Deficits : None Current Home Treatments and Equipment : Apnea monitor Does the Patient have a Floor to SNF Benefit? : No SULMA CANTU RN-Recovery Operator Helper - 03/19/2020 11:51 EST Discharge Needs I Anticipated Discharge Date : 03/19/2020 EST Anticipated Discharge To, CM : Home with family care Current Home Treatment/Equipment : Current Home Treatment/Equipment No qualifying data available. Post Acute/Home Treatments : None Documentation Status Complete : Yes SULMA CANTU RN-Recovery Operator Helper - 03/19/2020 11:51 EST Discharge Needs II Professional Skilled Services : Professional Skilled Services No qualifying data available. Needs Assistance with Transportation : No SULMA CANTU RN-Recovery Operator Helper - 03/19/2020 11:51 EST Narrative Note Narrative Note : 54yo female pt s/p C5-7 ACDF. Pt dc'd home with spouse assistance . No needs. SULMA CANTU RN-Recovery Operator Helper - 03/19/2020 11:51 EST Electronically signed by Patricia Ennis Conversion Public Message Service Supervisor Cerner at 06/04/2022 6:34 PM CDT documented in this encounter Plan of Treatment Not on file documented as of this encounter Visit Diagnoses Not on filedocumented in this encounter
--- OUTSIDE RECORDS SUMMARY | 2024-10-10 12:30 | XMS_ITS | Encounter Summary ---
Author Organization [employer] ([place], [place], [place], [place]) Address [address] [place] [address] Care Team Providers Care Machine Fancy Stitcher Name Role Phone Unavailable Primary Care Provider Unavailabl e Encounter Details Date Type Department Care Team (Late st Contact Info) Description 03/19/2020 Transcribed Document [facility] [place] Family Medicine [facility] [place] [address] ProviderDamion MD [facility] [place] [address] Social History Tobacco Use Types [...] Conversion Note - Damion ProviderMD - 03/19/2020 12:25 PM HAIRSPRING II INSPECTOR Nursing Discharge Summary Entered On: 03/19/2020 12:26 EST Performed On: 03/19/2020 12:25 EST by DANIA GALLO RN Discharge Documentation Discharge Date/Time : 03/19/2020 12:25 EST Patient Disposition, General : Discharge Discharge To : Home with ambulatory/outpatient follow-up Mode Of Departure, General Discharge : Private vehicle Accompanied By, Discharge : Spouse IV Discontinued : Yes Personal Belongings With Patient : Yes Pt's Own Supply of Medications Returned : No patient supply of medications to return Prescriptions Given to Patient : No Medications Given to Patient : Other: meds to bed Discharge Instructions Reviewed With, Opportunity For Questions Given : Patient, Spouse Patient Education Completed : Yes Teaching Method : Explanation, Printed materials Teaching Evaluation : Verbalizes understanding DANIA GALLO RN - 03/19/2020 12:25 EST Electronically signed by Raymon, [facility] Conversion Lead Shipper Cerner at 06/04/2022 6:42 PM CDT documented in this encounter Plan of Treatment Not on file documented as of this encounter Visit Diagnoses Not on filedocumented in this encounter
--- OUTSIDE RECORDS SUMMARY | 2024-10-10 12:30 | XMS_ITS | Encounter Summary ---
Author Organization [employer] ([place], [place], [place], [place]) Address [address] [place] [address] Care Team Providers Care Tool And Die Manager Name Role Phone Unavailable Primary Care Provider Unavailabl e Encounter Details Date Type Department Care Team (Late st Contact Info) Description 03/19/2020 Transcribed Document [facility] [place] [facility] [place] [address] ProviderDamion MD [address] [place] [address] Social History Tobacco Use Types [...] Note - Damion Veronica MD - 03/19/2020 10:12 AM CAREER GUIDANCE TECHNICIAN Patient Education Materials Follows: Cervical Fusion, Care After This sheet gives [...] these instructions at home: Medicines ??? Take pjhi-din-wctapvv and prescription medicines, including pain medicines, only [...] and water are not available, use hand research program internship. ? Change your dressing as told by [...] urine clear or pale yellow. ? Take gfou-fjf-upgquhf or prescription medicines. ? Eat foods that [...] 01/13/2018 Document Reviewed: 08/11/2016 Elsevier Patient Education ? 2020 [employer] Cervical Fusion Cervical fusion is a [...] including vitamins, herbs, eye drops, creams, and qkwf-yjy-idkxfug medicines. ??? Any problems you or family [...] Up to 2 hours before the procedure ? you may continue to drink clear liquids, such as water, clear fruit juice, black coffee, and plain tea. Eating and drinking restrictions Follow instructions from your health care provider about eating and drinking, which may include: ??? 8 hours before the procedure ? stop eating heavy meals or foods such as meat, fried foods, or fatty foods. ??? 6 hours before the procedure ? stop eating light meals or foods, such as toast or cereal. ??? 6 hours before the procedure ? stop drinking milk or drinks that contain milk. ??? 2 hours before the procedure ? stop drinking clear liquids. Medicines ??? Ask [...] where the fusion will be placed. This is?usually done at the front of your neck. [...] 07/23/2002 Document Revised: 01/13/2018 Document Reviewed: 08/11/2016 [employer] Patient Education ? 2020 [employer]. documented in this encounter Plan of Treatment Not on file documented as of this encounter Visit Diagnoses Not on filedocumented in this encounter
--- OUTSIDE RECORDS SUMMARY | 2024-10-10 12:31 | XMS_ITS | Encounter Summary ---
Author Organization [employer] ([place], [place], [place], [place]) Address [address] [place] [address] Care Team Providers Care Patient Centered Care Specialist Name Role Phone Unavailable Primary Care Provider Unavailabl e Encounter Details Date Type Department Care Team (Late st Contact Info) Description 03/18/2020 Transcribed Document [facility] [place] Family Medicine [facility] [place] [address] ProviderDamion MD [address] [place] [address] Social History Tobacco Use Types [...] - Damion ProviderMD - 03/18/2020 12:26 PM EMANATIONS ANALYSIS TECHNICIAN [facility] Main OR PACU Summary Primary Physician: VALE CARRILLO MD Finalized Date/Time: 03/18/20 20:10:39 Pt. Name: BUSHRA ROMERO/Sex: 1965 Female Med Rec #: [id number] Physician: VALE CARRILLO MD Financial #: [id number] Pt. Type: O Room/Bed: 652/1 Admit/Disch: 03/18/20 10:05:00 - Institution: [facility] Main OR PACU I Case Times Entry 1 In PACU I 03/18/20 14:15:00 Ready for PACU 03/18/20 18:31:00 Discharge Discharge from PACU 03/18/20 18:31:00 I Last Modified By: Ember Luna RN 03/18/20 19:47:50 Finalized By: Ember Luna, RAUL Document Signatures Signed By: Ember Luna RN 03/18/20 20:10 Electronically signed by Raymon [facility] Conversion Hris Specialist Cerner at 06/04/2022 6:44 PM CDT documented in this encounter Plan of Treatment Not on file documented as of this encounter Visit Diagnoses Not on filedocumented in this encounter
--- OUTSIDE RECORDS SUMMARY | 2024-10-10 12:31 | XMS_ITS | Encounter Summary ---
Author Organization [employer] ([place], [place], [place], [place]) Address [address] [place] [address] Care Team Providers Care Project Engineering Director Name Role Phone Unavailable Primary Care Provider Unavailabl e Encounter Details Date Type Department Care Team (Late st Contact Info) Description 03/18/2020 Transcribed Document [facility] [place] Family Medicine [facility] [place] [address] ProviderDamion MD [address] [place] [address] Social History Tobacco Use Types [...] Conversion Note - Damion ProviderMD - 03/18/2020 11:30 AM TELEPHONIC CASE MANAGER [facility] Main OR Preop Summary Primary Physician: VALE CARRILLO MD Finalized Date/Time: 03/18/20 11:54:07 Pt. Name: BUSHRA ROMERO/Sex: 1965 Female Med Rec #: [id number] Physician: VALE CARRILLO MD Financial #: [id number] Pt. Type: O Room/Bed: ASA/9 Admit/Disch: 03/18/20 10:05:00 - Institution: [facility] PreOp Case Times Entry 1 In Preop 03/18/20 10:46:00 Ready for Holding n/a Room Patient Ready for 03/18/20 11:30:00 Surgery Patient Out of Preop 03/18/20 11:51:00 Patient Out of n/a Holding Room Last Modified By: ALLA JOHNSON RN 03/18/20 11:54:03 [facility] PreOp Case Times Audit 03/18/20 11:54:03 Wellness Nurse: CELESTINE Modifier: ALLAHATFIELD <+> 1 Patient Out of Preop 03/18/20 11:30:28 Wellness Nurse: CELESTINE Modifier: [place] <+> 1 Patient Ready for Surgery Finalized By: ALLA JOHNSON, RN Document Signatures Signed By: ALLA JOHNSON RN 03/18/20 11:54 Electronically signed by Raymon [facility] Conversion Transit Bus Operator Cerner at 06/04/2022 6:35 PM CDT documented in this encounter Plan of Treatment Not on file documented as of this encounter Visit Diagnoses Not on filedocumented in this encounter
--- OUTSIDE RECORDS SUMMARY | 2024-10-10 12:31 | XMS_ITS | Clinical Summary ---
Author Organization [employer] ([place], [place], [place], [place]) Address [address] [place] [address] Care Team Providers Care Conveyor Operator Name Role Phone Unavailable Primary Care [...]
--- OUTSIDE RECORDS SUMMARY | 2024-10-10 12:31 | XMS_ITS | Encounter Summary ---
Author Organization [email or web address] ([place], [place], [place], [place]) Address [address] [place] [address] Care Team Providers Care Children'S Tutor Name Role Phone Unavailable Primary Care Provider Unavailabl e Encounter Details Date Type Department Care Team (Late st Contact Info) Description 03/19/2020 Transcribed Document [facility] [place] Medicine [facility] [place] [address] ProviderDamion MD [facility] [place] [address] Social History Tobacco Use Types [...] Conversion Note - Damion ProviderMD - 03/19/2020 8:36 AM NURSE PLASTICS Patient: BUSHRA ROMERO Age: 54 Years Sex: Female : 1965 Assessment/Plan postop day 1 C5 C7 ACDF ???Patient doing very well this morning. She is having some incisional soreness but does feel relieved of the upper extremity pain she had preoperatively. She is only tried eating once indicated has some trouble resulting in minimal tracking. Patient was brought in the future as he entered the room. I told her that some trouble swallowing initially postoperatively as normal but we would like to make sure she can you without choking prior to discharge. Patient will be discharged home today with family care. All postop care and follow-up were discussed. VTE Prophylaxis - Medical Sequential Compression Device Start: 03/18/20 10:31:00 EST, Bilateral, Continuous Order (VALE CARRILLO MD) Subjective some incisional pain and trouble swallowing. No upper extremity pain or numbness. No other complaints. No trouble voiding. Vital Signs T: 36.9 ??C TMIN: 36.6 ??C TMAX: 37.3 ??C HR: 82(Monitored) RR: 16 BP: 154/95 SpO2: 95% Oxygen Settings (Last) Oxygen Therapy Mode: Nasal cannula (03/18/20 18:45:00) Oxygen Flow Rate: 2 Liter/Min (03/18/20 18:45:00) Intake & Output Totals Last 24 Hours (7a-7a) Input Total: 1952 mL Output Total: 0 mL Balance: 1952 mL Physical Exam alert and oriented ??3. Incision site looks dry clean and intact. 5/ 5 strength bilateral upper extremities. Normal sensation to touch bilateral UE. admitting diagnosis: Cervical and spinal stenosis Discharge diagnosis cervical spinal stenosis Procedure C5-C7 ACDF Medications acetaminophen-oxyCODONE 325 mg-5 mg oral tablet, 2 Tab, Oral, Q4H, PRN Ancef + Sodium Chloride 0.9% intravenous solution 100 mL atorvastatin, 40 mg= 1 Tab, Oral, Daily Bactroban 2% topical ointment, 1 Application, Nostrils Both, 1-Time busPIRone, 15 mg= 3 Tab, Oral, BID carBAMazepine, 100 mg= 1 Tab, Oral, BID Chloraseptic Menthol 1.4% topical spray, 1 [place], Oral, Q2H Dulcolax Laxative, 10 mg= 1 Supp, Rectal, BID, PRN Flexeril, 5 mg= 0.5 Tab, Oral, TID, PRN gabapentin, 1200 mg= 2 Tab, Oral, At Bedtime hydroCHLOROthiazide, 25 mg= 1 Tab, Oral, Daily lisinopril, 40 mg= 2 Tab, Oral, Daily LR bolus, 500 mL, IV Piggyback, 1-Time, PRN Milk of Magnesia 8% oral suspension, 30 mL, Oral, TID, PRN morphine, 1 mg= 0.5 mL, IV Push, Q1H, PRN Norvasc, 10 mg= 1 Tab, Oral, Daily pantoprazole, 40 mg= 1 Tab, Oral, Daily scopolamine 1 mg/72 hr transdermal film, extended release, 1 Patch, Topical, [id number] Sodium Chloride 0.9% intravenous solution 1,000 mL, 1000 mL, IntraVENous venlafaxine, 225 mg= 6 Cap, Oral, At Bedtime Zofran, 4 mg= 2 mL, IV Push, Q4H, PRN Lab Results Test Name Test Result Date/Time Sodium Level 140 mmol/L 03/18/2020 10:54 EST Potassium Level 4.0 mmol/L 03/18/2020 10:54 EST Chloride Level 108 mmol/L 03/18/2020 10:54 EST Carbon Dioxide Level 25 mmol/L 03/18/2020 10:54 EST Anion Gap 11 03/18/2020 10:54 EST Glucose Level 111 mg/dL (High) 03/18/2020 10:54 EST Blood Urea Nitrogen 7 mg/dL 03/18/2020 10:54 EST Creatinine Level 0.70 mg/dL 03/18/2020 10:54 EST eGFR >60 mL/min/1.73m2 03/18/2020 10:54 EST eGFR NonAfrican >60 mL/min/1.73m2 03/18/2020 10:54 EST Bun/Creatinine 10.0 03/18/2020 10:54 EST Calcium Level 9.1 mg/dL 03/18/2020 10:54 EST WBC 7.6 K/uL 03/18/2020 10:54 EST RBC 4.50 Million/uL 03/18/2020 10:54 EST Hgb 13.8 g/dL 03/18/2020 10:54 EST Hct 41.3 % 03/18/2020 10:54 EST MCV 91.8 fL 03/18/2020 10:54 EST MCH 30.7 pg 03/18/2020 10:54 EST MCHC 33.4 Gram/dL 03/18/2020 10:54 EST Platelet Count 214 K/uL 03/18/2020 10:54 EST MPV 9.1 fL (Low) 03/18/2020 10:54 EST RDW 12.7 % 03/18/2020 10:54 EST Neut % 61.9 % 03/18/2020 10:54 EST Neut # 4.74 K/uL 03/18/2020 10:54 EST Lymph % 26.7 % 03/18/2020 10:54 EST Lymph # 2.04 x10(3)/uL 03/18/2020 10:[address] [place] % 8.1 % 03/18/2020 10:[address] [place] # 0.62 K/uL 03/18/2020 10:54 EST Eos % 2.1 % 03/18/2020 10:54 EST Eos # 0.16 x10(3)/uL 03/18/2020 10:54 EST Baso % 0.5 % 03/18/2020 10:54 EST Baso # 0.04 x10(3)/uL 03/18/2020 10:54 EST Slide Review No 03/18/2020 10:54 EST IG# 0.05 x10(3)/uL 03/18/2020 10:54 EST IG% 0.70 % (High) 03/18/2020 10:54 EST HCG Serum Quant 3.0 mIU/mL 03/18/2020 10:54 EST Electronically signed by [facility] Conversion Ordering Box Operator Cerner at 06/04/2022 6:52 PM CDT documented in this encounter Plan of Treatment Not on file documented as of this encounter Visit Diagnoses Not on filedocumented in this encounter
--- OUTSIDE RECORDS SUMMARY | 2024-10-10 12:31 | XMS_ITS | Encounter Summary ---
Author Organization [facility] ([place], [place], [place], [place]) Address [address] [place] [address] Care Team Providers Care Group Underwriter Name Role Phone Unavailable Primary Care Provider Unavailabl e Encounter Details Date Type Department Care Team (Late st Contact Info) Description 03/18/2020 Transcribed Document [facility] [place] Family Medicine [facility] [place] [address] ProviderDamion MD [facility] [place] [address] Social History Tobacco Use Types [...] Conversion Note - Damion ProviderMD - 03/18/2020 11:05 AM AUTO PARTS MANAGER Patient: BUSHRA ROMERO Age: 54 years Sex: Female : 1965 Associated Diagnoses: None Author: TENISHA PERKINS APRN Chief Complaint neck pain with RUE radiculopathy Review of Systems ROS reviewed as documented in chart no change since last seen by surgeon Health Status Allergies: Allergic Reactions (Selected) Severe Shellfish- Swelling of throat and anaphylaxis., Allergies (1) Active Reaction shellfish Anaphylaxis Current medications: (Selected) Inpatient Medications Ordered Ancef + Sodium Chloride 0.9% intravenous solution 100 mL: 3 Gram, 200 mL/Hr, IV Piggyback, PREOP Bactroban 2% topical ointment: 1 Application, Nostrils Both, 1-Time Lactated Ringers Injection intravenous solution 1,000 mL: 20 mL/Hr, IntraVENous lidocaine 1% preservative-free injectable solution: 0.5 mL, IntraDermal, 1-Time Documented Medications Documented Citrucel Lax: 1,000 mg, Oral, Daily, 0 Refill(s) Enbrel Prefilled Syringe: 50 mg, SubCutaneous, Tuesday, weekly, 0 Refill(s) Prevacid: 30 mg, Oral, Daily, 0 Refill(s) Voltaren 1% topical gel: 2 Gram, Topical, QID, uses to hands, feet and knees, PRN: as needed for arthritic pain, 0 Refill(s) amitriptyline: 20 mg, Oral, At Bedtime, 0 Refill(s) amlodipine-benazepril 10 mg-40 mg oral capsule: 1 Cap, Oral, Daily, 30 Cap, 0 Refill(s) atorvastatin: 40 mg, Oral, Daily, 0 Refill(s) busPIRone: 15 mg, Oral, BID, 0 Refill(s) carBAMazepine: 100 mg, Oral, BID, 0 Refill(s) gabapentin: 1,200 mg, Oral, At Bedtime, 0 Refill(s) hydroCHLOROthiazide: 25 mg, Oral, Daily, 0 Refill(s) venlafaxine: 225 mg, Oral, At Bedtime, 0 Refill(s), Home Medications (12) Active amitriptyline 20 mg, Oral, At Bedtime amlodipine-benazepril 10 mg-40 mg oral capsule 1 Cap, Oral, Daily atorvastatin 40 mg, Oral, Daily busPIRone 15 mg, Oral, BID carBAMazepine 100 mg, Oral, BID [place] Lax 1,000 mg, Oral, Daily Enbrel Prefilled Syringe 50 mg, SubCutaneous, Tuesday gabapentin 1,200 mg, Oral, At Bedtime hydroCHLOROthiazide 25 mg, Oral, Daily Prevacid 30 mg, Oral, Daily venlafaxine 225 mg, Oral, At Bedtime Voltaren 1% topical gel 2 Gram, PRN, Topical, QID , Medications (4) Active Scheduled: (3) ceFAZolin + NaCl 0.9% 100 mL 3 Gram, IV Piggyback, PREOP lidocaine 1% *PF* inj 30 mL 0.5 mL, IntraDermal, 1-Time mupirocin 2% oint 22 g 1 Application, Nostrils Both, 1-Time Continuous: (1) lactated ringers 1,000 mL 1,000 mL, IntraVENous, 20 mL/Hr PRN: (0) Problem list: All Problems Trigeminal neuralgia / SNOMED CT 83502669 / Confirmed Neck pain, radiates to Rt shoulder, RUE / SNOMED CT 314192336 / Confirmed HTN (hypertension) / SNOMED CT 5459890657 / Confirmed Hyperlipidemia / SNOMED CT 98663377 / Confirmed History of obstructive sleep apnea / IMO 33229820 / Confirmed Heartburn / SNOMED CT 36792973 / Confirmed Rheumatoid arthritis / SNOMED CT 6121756 / Confirmed Anxiety, depression / SNOMED CT 36696804 / Confirmed, Active Problems (8) Anxiety, depression Heartburn History of obstructive sleep apnea HTN (hypertension) Hyperlipidemia Neck pain, radiates to Rt shoulder, RUE Rheumatoid arthritis Trigeminal neuralgia Histories Past Medical History: No active or resolved past medical history items have been selected or recorded. Family History: No family history items have been selected or recorded. Procedure history: tonsillectomy. left carpal tunnel release. Social History Social & Psychosocial Habits No Data Available . Physical Examination VS/Measurements No qualifying data available, Measurements from flowsheet : Measurements 03/17/2020 15:00 EST Height Source Measured Height Entry Format [place] Height/Length, [place] (ft) 5 ft Height/Length [place] 4 Inch CLINICALHEIGHT 162.56 cm [place] Body Weight 54 kg Weight Source Standing scale Weight Entry Format [place] Weight [place] lb 275 lb CLINICALWEIGHT 125 kg Body Surface Area (BSA) 2.24 m2 Body Mass Index 47.3 kg/m2 >HHI General: Alert and oriented, No acute distress, morbid obesity. Eye: Pupils are equal, round and reactive to light, Extraocular movements are intact, glasses. HENT: Normocephalic, Normal hearing. Neck: Supple, Non-tender. Respiratory: Lungs are clear to auscultation, Respirations are non-labored. Cardiovascular: Normal rate, Regular rhythm, No murmur, No gallop, No edema. Gastrointestinal: Soft, Non-tender. Genitourinary: No costovertebral angle tenderness. Lymphatics: No lymphadenopathy neck, axilla, groin. Musculoskeletal: painful ROM neck, RUE weakness. Integumentary: Warm, Dry, scabbed burn inner aspect R forearm POA. Neurologic: Alert, Oriented. Psychiatric: Cooperative, Appropriate mood & affect. Review / Management Results review: No qualifying data available. Impression and Plan Condition: Stable. documented in this encounter Plan of Treatment Not on file documented as of this encounter Visit Diagnoses Not on filedocumented in this encounter
--- OUTSIDE RECORDS SUMMARY | 2024-10-10 12:31 | XMS_ITS | Encounter Summary ---
Author Organization [email or web address] ([place], [place], [place], [place]) Address [address] [place] [address] Care Team Providers Care Manager Budget Name Role Phone Unavailable Primary Care Provider Unavailabl e Encounter Details Date Type Department Care Team (Late st Contact Info) Description 03/18/2020 Transcribed Document [facility] [place] [facility] [place] [address] ProviderDamion MD [facility] [place] [id number] Social History Tobacco Use Types Packs/Day Years [...] Conversion Note - Damion ProviderMD - 03/18/2020 2:22 PM PRODUCT/DEVICE TECHNOLOGIST DATE OF PROCEDURE: 03/18/2020 NEUROSURGERY OPERATIVE REPORT SURGEON: Rodríguez Holliday MD RAIL SIGNAL MECHANIC: Jarocho Latham PA-C. Scrubbed present assisting in cleaning and closure of the wound. PREOPERATIVE DIAGNOSES: 1. Cervical stenosis. 2. Cervical spondylosis with radiculopathy. 3. Morbid obesity, BMI 48. POSTOPERATIVE DIAGNOSES: 1. Cervical stenosis. 2. Cervical spondylosis with radiculopathy. 3. Morbid obesity, BMI 48. PROCEDURE: Anterior cervical discectomy and fusion at C5-6, C6-7. ANESTHESIA: General endotracheal anesthesia. ESTIMATED BLOOD LOSS: 25 cc. COMPLICATIONS: None. FINDINGS: Severe spinal stenosis, disk protrusion with osteophyte complex causing severe central and foraminal stenosis. HARDWARE: Medtronic Zevo anterior cervical plate screw system. BRIEF HISTORY: Ms. Romero is a 54-year-old, she has history of sleep apnea, morbid obesity, presented for evaluation of her neck issues. She has referred pain into the right scapula and shoulder and sometimes extending down the arm. The pain is quite severe. An MRI was performed showing very severe spinal stenosis and foraminal stenosis at C5-6, C6-7. Treatment options were discussed. It was felt based on the severity of the imaging as well as the patient's symptoms, she was also given a history of early myelopathy. The decision was made to proceed with a 2-level ACDF. We talked about the risks, benefits, indications. Because of her comorbidities, we have made plans to watch her for 23-hour observation after the operation. OPERATIVE DETAILS: The patient was intubated without incident, placed in 7 pounds cervical traction. The anterior neck was prepped and draped. Time-out performed. Antibiotics were given. Films were available and reviewed in the room prior to incision and the incision was localized with C-arm fluoroscopy. A right transverse incision was marked out. Incision was performed with a 15-blade knife, cautery dissection through the subcu fat. The platysma was undermined, then incised. Continued sharp and blunt dissection medial to the SCM down to the prevertebral fascia. A periosteal dissection was undertaken exposing the C5 to C7 vertebra. The longus muscle reflected laterally. TrimLine retractors were placed into the wound. Please note, because of the patient's body habitus, the dissection and the length of the surgical field was created in a more challenging operation, also took more time for the dissection and for the decompression portion of the surgery. The disk spaces were defined. The superior lips were removed at C5-6 and C6-7. This bone was repurposed for autograft. Diskectomies were now completed with curettes and the Midas drill. The PLL was mobilized and removed. At both levels, we found prominent disk protrusions with severe spinal stenosis, displacement of the underlying spinal sac. In addition, there were fragments into the foramen that were causing severe stenosis. This was cleaned out using the Kerrisons. The PLL was defined and the plane between the PLL and spinal sac and spinal cord were demarcated before removing the PLL. Once the decompression was completed, the wound was inspected, copiously irrigated. Meticulous hemostasis was achieved. The endplates were prepared for arthrodesis. A 7 mm cages were now opened after trialing this into the disk space. They were packed with FiberCell allograft and autograft and then the cages were advanced into the disk space. A PEEK cage placed at C5-6 and a Titan TC cage placed at C6-7. A 37 mm plate was placed over the cervical spine with 15 mm screws x2 placed at C5, C6, C7. Screws were tightened. Locking mechanism was engaged. Final AP and lateral x-ray showed excellent placement of the hardware. The wound was inspected a final time. Meticulous hemostasis was achieved. The platysma and subcuticular layers were closed separately. Steri-Strips were placed over skin for final wound closure. Traction was removed after placement of the cages. The patient was extubated without incident and left the OR in stable condition. /[id number] Rodríguez Holliday MD GP/AQ / GP / MODL /[id number] documented in this encounter Plan of Treatment Not on file documented as of this encounter Visit Diagnoses Not on filedocumented in this encounter
--- OUTSIDE RECORDS SUMMARY | 2024-10-10 12:31 | XMS_ITS | Encounter Summary ---
Author Organization [employer] ([place], [place], [place], [place]) Address [address] [place] [address] Care Team Providers Care Glass Cleaning Machine Tender Name Role Phone Unavailable Primary Care Provider Unavailabl e Encounter Details Date Type Department Care Team (Late st Contact Info) Description 03/18/2020 Transcribed Document [facility] [place] Medicine [facility] [address] ProviderDamion MD [facility] [address] Social History Tobacco Use Types [...] Conversion Note - Damion ProviderMD - 03/18/2020 2:34 PM SALES AND CATERING COORDINATOR Patient: BUSHRA NORWOOD Age: 54 Years Sex: Female : 1965 Admit Date 03/18/2020 10:05 Discharge Date 03/19/20 Primary Care Provider JUDY LA (REF) T Discharge Diagnosis Cervical spondylosis with radiculopathy 03/18/2020 M47.22 ICD-10-CM Procedures SN - Proc - Procedure: Cervical Discectomy Fusion Anterior (03/18/20 12:29:36) Studies no studies performed during the course of her stay Reason for Hospitalization Ms Norwood is a 54-year-old who was seen at the request of Dr. Judy La. Comorbidities include rheumatoid arthritis, sleep apnea. The patient presents for evaluation of her neck problems. Started after a fall in August. She had a second fall in November. She complains of referred pain in the back of the neck extending into the right arm. The intensity is 8 out of 10. Endorses a sharp stabbing deep ache tightness that is constant. No alleviating or aggravating factors identified. She reports weakness in the right arm. Treatment has included physical therapy ultrasound TENS unit, signed steroid pack ??2. She takes gabapentin chronically. She uses [id number] anti-inflammatories as needed. Describes difficulty with her handwriting, clumsiness in the right hand and dropping objects. The weakness developed after her second fall in November. patient had a MRI cervical spine at [facility] which showed severe spinal stenosis C6-7 with bilateral foraminal stenosis. Moderate to severe central stenosis C5-6 with a central left paracentral disc protrusion. due to mri findings as well as patient symptoms we discussed with her that she would be a good candidate for a two level acdf. she agreed and the surgery was scheduled Hospital Course on 03/18/20 the patient was brought to the OR after informed consent had been obtained and Dr.Gabriel Holliday performed a C5-C7 ACDF. the patient tolerated the procedure well and was transferred to the recovery room. on 03/19/20 post-op day 1,Patient doing very well this morning. She is [...] All postop care and follow-up were discussed. Vital Signs HR: 83(Monitored) RR: 18 BP: 148/77 SpO2: 96% HT: 162.56 cm WT: 125 kg BMI: 47.3 Oxygen Settings (Last) Oxygen Therapy Mode: Room air (03/18/20 11:00:00) Physical Exam General: [Alert and oriented, well nourished, no acute distress]. Neurologic: [Awake, alert, and oriented X3, CN II-XII intact]. Eye: [PERRL, EOMI, normal conjuctiva]. HENT: [Normocephalic, clear tympanic membranes, normal hearing, moist oral mucosa, no scleral icterus, no sinus tenderness]. Neck: [Supple, non-tender, no carotid bruits, no JVD, no lymphadenopathy]. Lungs: [Clear to auscultation and percussion, non-labored respiration]. Heart: [Normal rate, regular rhythm, no murmur, gallop or edema]. Abdomen: [Soft, non-tender, non-distended, normal bowel sounds, no masses]. Musculoskeletal: 5 out of 5 strength bilateral upper extremities. Normal sensation to touch bilateral upper extremities.2+ reflexes throughout BUE Skin: incision site dry,clean,intact. Psychiatric: [Cooperative, appropriate mood and affect]. Discharge Disposition discharge home Discharge Follow Up will f/u with in one month with a set of ap/lateral x-rays Discharge Medications (12) Active amitriptyline 20 mg, Oral, [...] topical gel 2 Gram, PRN, Topical, QID Code Status No Code Status Order on Record Condition on Discharge stable Consulting Physicians AWILDA PATEL MD-ANS Current Diet Order No qualifying data available. Patient Discharge Summary Orders no lifting over 10 pounds no strenuous activity keep incision dry and clean Follow Up Labs/Studies patient will f/u in clinic in one month with a set of ap/lateral cervical x-rays Pending Labs Collected Urinalysis UA Rflx Microscopic Cult if Ind Specimen Type: Urine, Clean Catch, See special Instructions, Routine collect, 03/18/20 10:23:00 EST, 1-Time, Stop: 03/18/20 10:24:00 EST, Nurse Collect, Instructions: per orders Electronically signed by Raymon [facility] Conversion Java Web Engineer Cerner at 06/04/2022 6:34 PM CDT documented in this encounter Plan of Treatment Not on file documented as of this encounter Visit Diagnoses Not on filedocumented in this encounter
== END 2024-10-08 23:59 | disposition home or self-care (01) ==
LOC: LAB.DROPOF 10-10 12:29
PROVIDERS: PCP Nurse Practitioner; Visit Provider Nurse Practitioner
DX: E78.5 Hyperlipidemia, unspecified (principal); Z11.59 Encounter for screening for other viral diseases; I10 Essential (primary) hypertension; R73.01 Impaired fasting glucose
CPT/HCPCS: 80053; 80061; 82043; 82570; 82607; 83036; 84443; 85025; 86803; 87340; 87389

== ENCOUNTER 2024-10-18 13:29 | Outpatient (CLI) | payer BC, SELFPAY ==
--- OUTSIDE RECORDS SUMMARY | 2024-10-18 13:32 | XMS_ITS | Clinical Summary ---
Author Organization [facility] Address [address] [place] [place] [address] Phone Care Team Providers Care Software Validation Technician Name Role Phone Unavailable Primary Care Provider [...] COVID-19 Vaccine ( - 2023-2 5 season) 2024 Influenza Vaccine (#1) 2024 Meningococcal B Vaccine Aged Out No l onger eligible based on patient's age to complete this topic Insurance [employer]
--- NOTE | 2024-10-18 14:00 | MM_ITS ---
PROCEDURE INFORMATION: Exam: MG Bilateral Screening 3D Mammography Exam date and time: 10/18/2024 1:45 PM Age: 59 years old Clinical indication: Screening examination TECHNIQUE: Imaging protocol: Bilateral Screening tomosynthesis and 2D mammography including computer-aided detection (CAD) when performed. COMPARISON: 1. MG SCREENING SERGEY MAMMOGRAM 12/06/2022 1:00 PM 2. MG SCREENING SERGEY MAMMOGRAM 11/24/2020 10:29 AM FINDINGS: MAMMOGRAPHY: Breast composition: The breasts are almost entirely fatty. Mass: None. Architectural distortion: None. Calcifications: No suspicious calcifications. Asymmetric density: None. Skin thickening: None. Axillary adenopathy: None. IMPRESSION: No mammographic evidence of malignancy. Annual screening is recommended unless otherwise clinically indicated. ASSESSMENT: BI-RADS Category 1: Negative.
== END 2024-10-18 23:59 | disposition home or self-care (01) ==
LOC: RAD 13:30
PROVIDERS: PCP Family Medicine; Visit Provider Nurse Practitioner
DX: Z12.31 Encounter for screening mammogram for malignant neoplasm of breast (principal)
CPT/HCPCS: 77063; 77067

== ENCOUNTER 2024-10-22 12:00 | Outpatient (CLI) | payer BC, SELFPAY ==
[2024-10-22 14:57] LABS: Coronavirus 19, PCR Not Detected (NotDetected); Influenza A, PCR Not Detected (NotDetected); Influenza B, PCR Not Detected (NotDetected)
[2024-10-22 16:38] LABS: Hematocrit 44.0 % (37.0-47.0); Hemoglobin 14.2 g/dL (12.2-16.2); Immature Granulocytes % 0.4 %; Mean Corpuscular HGB Conc 32.3 g/dL (31.8-35.4); Mean Corpuscular Hemoglobin 30.2 pg (27.0-31.2); Mean Corpuscular Volume 93.6 fl (81-99); Nucleated Red Blood Cells % 0 %; Platelet Count 237 K/mm3 (142-424); Red Blood Count 4.70 M/mm3 (4.20-5.40); Red Cell Distribution Width-SD 44.9 fL; White Blood Count 7.5 K/mm3 (4.8-10.8)
--- OUTSIDE RECORDS SUMMARY | 2024-10-23 09:27 | XMS_ITS | Clinical Summary ---
Author Organization [facility] Address [address] [facility] [place] [address] Phone Care Team Providers Care Signaling Design Engineer Name Role Phone Unavailable Primary Care [...]
== END 2024-10-22 23:59 ==
LOC: LAB.DROPOF 10-23 09:17
PROVIDERS: PCP Nurse Practitioner; Visit Provider Nurse Practitioner
DX: J06.9 Acute upper respiratory infection, unspecified (principal)
CPT/HCPCS: 85025; 87636